=== PATIENT | male | born 1990 | race American Indian/Alaskan Native ===

== ENCOUNTER 2021-10-07 12:34 | Outpatient (REF) | payer OTHER, SELFPAY ==
[2021-10-07 13:12] LABS: COVID-19 Test Negative (Negative); IDNOW Serial# 55D5AD1C
== END 2021-10-07 12:35 | disposition home or self-care (01) ==
LOC: HO.LAB 12:34
PROVIDERS: Visit Provider Internal Medicine
DX: Z20.822 Contact with and (suspected) exposure to COVID-19 (principal)
CPT/HCPCS: 87635

== ENCOUNTER 2023-11-28 09:10 | Outpatient (AMB) | payer OTHER, SELFPAY ==
--- NOTE | 2023-11-28 10:18 | AM.OFFWIN_ITS ---
Intake Vital Signs 11/28/23 10:19 Height 5 ft 5 in Weight 166 lb BMI 27.6 BP 126/90 H Blood Pressure Location Lt brachial Position Sitting Pulse 73 Pulse Source Pulse Oximeter Temp 97.6 F Temp Source Temporal Artery Scan Pulse Oximetry (%) 97 Oxygen Delivery Method Room Air Intake Visit Reasons: EST/groin area redness ([phone]) Intake Note: pt is here today for groin area redness started 1 week ago Patient Tobacco Use Status: Never used Tobacco Allergies No Known Allergies Allergy (Verified 11/28/23 10:19) Do you need a note to return to daycare/school/sports/work: No HPI EST/groin area redness ([phone]) HPI Details 33 year old male presents to the office for a sick visit. He has a rash on the front of the penis. A red spot appeared a few weeks ago and was followed by a few more spots this week. He is heterosexual, single partner, does not use protection (Condoms). Reports no discharge. 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 [facility] Social History Patient Tobacco Use Status: Never used Tobacco Physical Exam Vital Signs: Last Vital Signs Temp 97.6 F 11/28/23 10:19 Pulse 73 11/28/23 10:19 BP 126/90 H 11/28/23 10:19 Pulse Ox 97 11/28/23 10:19 Oxygen Delivery Method Room Air 11/28/23 10:19 BMI result Body Mass Index 27.6 Other: Penis: Glans: erythematous lesions, well circumscribed, no tenderness, minimal whitish exudate on the prepuce. Testicular exam is normal. No inguinal hernia. Assessment & Plan Assessment & Plan (1) Balanitis: Code(s): N48.1 - Balanitis Plan: Most likely candidal in origin. Patient was advised to use lotrimin. If sx not better to follow up here. Medications: New clotrimazole 1% 1 appl topical BID 2 weeks 15 grams 1RF Coding Level of Care Code Est Pt Level 3 (32142) Diagnoses Balanitis N48.1
[2023-11-28 10:19] VITALS: BP 126/90; PULSE 73; TEMP 36.4; O2SAT 97; BMI 27.6
== END 2023-11-28 11:25 | disposition home or self-care (01) ==
PROVIDERS: Visit Provider Internal Medicine
DX: N48.1 Balanitis (principal)
CPT/HCPCS: 99213

== ENCOUNTER 2024-03-02 19:56 | Emergency (ER) | payer OTHER, SELFPAY ==
[2024-03-02 21:00] VITALS: BP 136/88; PULSE 60; RESP 18; O2SAT 100; BMI 29.0
--- NOTE | 2024-03-02 21:17 | ED_ITS ---
HPI - General Adult General Chief complaint: Dental/Oral Stated complaint: tooth pain Time Seen by Provider: 03/02/24 21:14 Source: patient Limitations: no limitations History of Present Illness HPI narrative: 34-year-old male presents for evaluation of right-sided facial pain. Patient states he has a known issue with 1 of his right upper teeth. He had some dental work performed last month and had a follow up appointment because he began to have. Patient was placed on clindamycin for which he completed a course several days ago. Patient states over the past 2 days he has had worsening pain, sharp, shooting and throbbing pain to the right side of his face. It is worse with chewing. He has been taking ibuprofen with minimal relief. He denies any fevers chills nausea or vomiting. 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 Related Data Previous Rx's ?Medication ?Instructions ?Recorded clotrimazole 1 % topical cream 1 appl topical BID 2 weeks #15 11/28/23 grams clindamycin HCl 300 mg capsule 300 mg PO Q6H 7 days #28 caps 03/02/24 ibuprofen 600 mg tablet 600 mg PO Q6H PRN pain #20 tabs 03/02/24 oxycodone 5 mg tablet 5 mg PO Q6H PRN pain #8 tabs 03/02/24 Allergies Allergy/AdvReac Type Severity Reaction Status Date / Time Penicillins Allergy Anaphylaxis Verified 03/02/24 22:05 Review of Systems ENT: Reports dental pain, Reports facial pain, Denies hoarseness, Denies sinus pain, Denies sinus pressure, Denies sore throat and Denies throat swelling Respiratory: Respiratory: Reports no additional respiratory complaints Allergic/Immunologic: Allergic/Immunologic: Denies throat swelling [facility] Social History Social History Patient Tobacco Use Status: Never used Tobacco Advance Directives: No Advance Directives Information Provided: No Do you have a plan to hurt others: No Plan Physical Exam ED Vital Signs: Vital Signs - 24 hr 03/02/24 21:00 03/02/24 21:19 03/02/24 22:18 Temperature 97.9 F 97.9 F Pulse Rate 60 98 98 Respiratory Rate 18 18 Blood Pressure 136/88 126/73 126/73 Pulse Oximetry 100 98 98 Oxygen Delivery Method Room Air Room Air Room Air BMI result Body Mass Index 29.0 Const General: cooperative HENMT Other: Oropharynx is moist. There is no tongue elevation or edema. Teeth are in fairly good repair. Tooth 3 Has mild tenderness to tapping. There is no periapical erythema or edema. No evidence for drainable abscess. No trismus. No lymphadenopathy Psych Appearance: grossly normal Course Course Course Narrative: At time of discharge, patient was to receive a dose of Augmentin. Despite discussing this medication with the patient, he later realized that he has anaphylactic allergy to penicillins. This medication was not administered to the patient. Augmentin was discontinued and clindamycin ordered. Medications Administered Discontinued Medications Generic Name Dose Route Start Last Admin Trade Name Freq PRN Reason Stop Dose Admin Clindamycin HCl 300 mg 03/02/24 22:08 03/02/24 22:12 Clindamycin Hcl 300 Mg Capsule PO 03/02/24 22:09 300 mg ONCE ONE Administration Oxycodone HCl 5 mg 03/02/24 21:33 03/02/24 22:05 Oxycodone Hcl Immed Release 5 Mg Tablet PO 03/02/24 21:34 5 mg ONCE ONE Administration Medical Decision Making Medical Decision Making MDM Narrative: 34-year-old male presenting for right-sided facial pain and dental pain. No evidence of drainable abscess on exam. Will repeat course of antibiotics as well as additional pain medication. Prescription monitoring program is not reveal any controlled substances. Patient is not driving this evening and he has a ride by his girlfriend has with him. First dose of clindamycin now. Instructions, including the use of oxycodone being a potential for addictive medication, could cause drowsiness and fatigue. Patient expresses understanding of all discharge instructions and has no further questions at this time. He was also provided a note for light duty that included no driving, no operating of heavy machinery, and no use of firearms while on [employer] training. Differential Diagnosis Differential Diagnoses: The differential diagnosis associated with the presentation includes Dental abscess Dental caries Facial pain Broken dentition Independent Historian Clinical information obtained from an independent historian. History obtained from or confirmed by: Friend Prescription Management I considered prescription management with: Pain Medication and Antibiotic Discharge Plan Discharge Clinical Impression: Dental caries, Acute facial pain Patient Disposition: Home, Self-Care Instructions: Toothache (ED) Additional Instructions: Clindamycin as directed. Finish all antibiotics. Ibuprofen as directed. Take with food. This will help with pain and inflammation. Oxycodone as directed. Do not drive, operate heavy machinery or drink alcohol while taking this medication as it may make you drowsy. Follow-up with your primary care provider. Call this week to schedule a follow- up appointment. Return to the emergency department if you have any worsening of symptoms, or any concerns. Get well soon! Prescriptions: New oxycodone 5 mg tablet 5 mg PO Q6H PRN (Reason: pain) Qty: 8 0RF Rx Instructions: Partial Fill upon patient request. ibuprofen 600 mg tablet 600 mg PO Q6H PRN (Reason: pain) Qty: 20 0RF Rx Instructions: Take with food. clindamycin HCl 300 mg capsule 300 mg PO Q6H 7 Days Qty: 28 0RF No Action clotrimazole 1 % cream 1 appl topical BID 14 Days Qty: 15 1RF Stand Alone Forms: Dental Emergency Numbers, Work/School Release Interventions: ED Discharge Assessment Last Done: 03/02/24 22:18 Discharge Date/Time: 03/02/24 22:18 Print Language: Hong Konger
[2024-03-02 21:19] VITALS: BP 126/73; PULSE 98; TEMP 36.6; O2SAT 98
[2024-03-02] MEDS: oxyCODONE HCl Immed Release 5 MG TABLET PO (22:05)
[2024-03-02] MEDS: Clindamycin HCL 300 MG CAPSULE PO (22:12)
[2024-03-02 22:18] VITALS: BP 126/73; PULSE 98; RESP 18; TEMP 36.6; O2SAT 98
== END 2024-03-02 22:18 | disposition home or self-care (01) ==
PROVIDERS: Emergency Provider Emergency Medicine
DX: K02.9 Dental caries, unspecified (principal); R51.9 Headache, unspecified
CPT/HCPCS: 99283

== ENCOUNTER 2024-06-16 09:49 | Outpatient (AMB) | payer OTHER, SELFPAY ==
[2024-06-16 10:01] VITALS: BP 142/80; PULSE 67; TEMP 36.7; O2SAT 97; BMI 29.0
--- NOTE | 2024-06-16 10:01 | MHC.OFFWIV ---
Intake Vital Signs 06/16/24 10:01 Height 5 ft 7 in Weight 185 lb BMI 29.0 BP 142/80 H Blood Pressure Location Rt brachial Position Sitting Pulse 67 Pulse Source Pulse Oximeter Temp 98.1 F Temp Source Oral Pulse Oximetry (%) 97 Oxygen Delivery Method Room Air Intake Visit Reasons: EP Cough, congestion, sinus pressure Intake Note: pt is here for cough, congestion and sinus pressure, ongoing for 2 weeks Patient Tobacco Use Status: Never used Tobacco Allergies Penicillins Allergy (Verified 06/16/24 10:01) Anaphylaxis Do you need a note to return to daycare/school/sports/work: No HPI HPI Comments History of Present Illness Details He presents to office with cold symptoms 2 wees ago dry throat. progressed into dry cough Worsening sinus congestion and pressure Truing DayWuil/NyQuil without relief Presents for worsening chest congestion + tight chest Cough with production of phlegm No fever or chills + sick contacts States sinus has cleared PFSH Social History Patient Tobacco Use Status: Never used Tobacco Review of Systems Const Denies chills, Reports fatigue and Denies fever(s) Eyes Denies change in vision ENT Denies otalgia, Reports nasal discharge, Denies sinus pressure and Denies sore throat Card Denies chest pain, Denies rapid heart rate and Denies dyspnea Resp Reports chest congestion, Reports cough, Denies dyspnea and Denies wheezing Musc Denies myalgias Endo Reports fatigue Aller/Immun Denies wheezing Physical Exam Vital Signs: Last Vital Signs Temp 98.1 F 06/16/24 10:01 Pulse 67 06/16/24 10:01 BP 142/80 H 06/16/24 10:01 Pulse Ox 97 06/16/24 10:01 Oxygen Delivery Method Room Air 06/16/24 10:01 BMI result Body Mass Index 29.0 General: Non-toxic, NAD. Speaking full sentences. Skin: Warm dry throughout Eye: EOMI HENT: Airway patent. Uvula midline. No pharyngeal erythema or edema. 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 Bilateral canals clear. TM non-erythematous, non-bulging. No TM perforation or hemotympanum noted. Respiratory: CTA bilaterally. No wheezes or rhonchi. Minimal decrease at base without crackles appreciated. No respiratory distress or stridor Cardiac: RRR. No murmur MSK: Full ROM extremities. Neurology: A/O. No aphasia or facial droop. Gait without abnormality Psych: Good mood and affect Assessment & Plan Assessment & Plan (1) Acute bacterial bronchitis: Code(s): J20.8 - Acute bronchitis due to other specified organisms; B96.89 - Other specified bacterial agents as the cause of diseases classified elsewhere Plan: Pt seen and evaluated URI symptoms resolved but cough worsening Lungs without rales or significant rhonchi however due to symptom history, will cover with azithromycin Chest xray not warranted at this time F/U with PCP Call with concerns SOB or CP go to ED Pt gave verbal consent upon discharge Insurance does not cover benzonate tablets so they were not called in Medications: New azithromycin start on day 2 of therapy 250 mg PO DAILY 6 tabs 0RF 6 days Coding Level of Care Code Est Pt Level 3 (75338) Diagnoses Acute bacterial bronchitis J20.8; B96.89
== END 2024-06-16 11:16 | disposition home or self-care (01) ==
PROVIDERS: Visit Provider Physician Assistant
DX: J20.8 Acute bronchitis due to other specified organisms (principal); B96.89 Other specified bacterial agents as the cause of diseases classified elsewhere

== ENCOUNTER → 2024-06-16 09:49 | Outpatient (BNVA) | payer OTHER, SELFPAY | DX: J20.8 Acute bronchitis due to other specified organisms (principal); B96.89 Other specified bacterial agents as the cause of diseases classified elsewhere | CPT/HCPCS: 99212 ==

== ENCOUNTER 2025-01-15 08:17 | Day surgery (SDC) | payer OTHER, SELFPAY ==
[2025-01-09 15:18] VITALS: BMI 28.5
[2025-01-15 08:29] VITALS: BP 120/74; PULSE 62; RESP 18; TEMP 36.6; O2SAT 97; BMI 28.6
--- NOTE | 2025-01-15 08:31 | HO.ANESPROP2 ---
PMF Active Problems Active Problems: All Active Problems Acute bacterial bronchitis (Acute) Past Medical History Medical History (Updated 01/09/25 @ 15:18 by Yin Christianson RN) Sickle cell trait Anxiety GERD (gastroesophageal reflux disease) Family History Family history of problems with anesthesia: No Surgical History Surgical History (Updated 01/09/25 @ 15:18 by Yin Christianson RN) Hx of wisdom tooth extraction History of Problems with Anesthesia: No Social History Social History (Updated 01/09/25 @ 15:18 by Yin Christianson RN) Patient Tobacco Use Status: Never used Tobacco Advance Directives: No Advance Directives Information Provided: Yes Meds Allergies Allergy/AdvReac Type Severity Reaction Status Date / Time Penicillins Allergy Anaphylaxis Verified 01/15/25 08:23 Home Medications ?Medication ?Instructions ?Recorded ?Confirmed ?Last Taken ?Type psyllium 01/15/25 01/08/25 History Exam Height,Weight and Vital Signs: Height 5 ft 5 in Weight 77.655 kg Airway Mallampati Class: II TM Dist: >3cm Neck ROM: Full Assessment and Plan Assessment Anesthesia Assessment: Anesthesia Plan Discussed and Chart Reviewed Final Anesthetic Review Family History of Problems with Anesthesia: No History of Problems with Anesthesia: No NPO: Yes ASA Class: I Final Preanesthetic Review: No Changes in Pt Med Stat, Meds/Allgs Chart Reviewed, Consent Obtained/Reviewed and Anes Risks/Benef Reviewed Patient Risk: Low Procedure Risk: Low Anesthetic Plan Anesthetic Plan: TIVA Disposition: Standard PACU
--- OUTSIDE RECORDS SUMMARY | 2025-01-15 08:32 | XMS_ITS ---
Author Organization [facility] Address [address] [place] [address] Care Team Providers Care Retoucher Photoengraving Name Role Phone Everton RICHMOND, Lucas Primary Care Provider Rohit Muñoz Jr Unavailable Allergies Allergen (clinical drug ingredient) Drug/Non Drug Allergy documented on EMR Reaction Allergy Type Onset Date Status Penicillin Unknown Drug Allergy Active REASON FOR VISIT Patient presents today for ACID RELUX Social History Tobacco Use: Social History Observation Description Date Details (start date - stop date) Never Smoker NA - NA Tobacco Control (Standard) Question Answer Notes Tobacco use: Nonsmoker AUDIT-C (Standard) Question Answer Notes Did you have a drink contain ing alcohol in the past year? Yes How often did you have a dri nk containing alcohol in the past year? Monthly or less (1 point) How many drinks did you have on a typical day when you were drinking in the past year? 1 or 2 drinks (0 point) How often did you have six o r more drinks on one occasion in the past year? Never (0 point) Points 1 Interpretation Negative Problems Problem Type SNOMED Code ICD Code Onset Dates Problem Status W/U Status Risk Notes Problem [id number] Gastroesophageal reflux disease, unspecified whether esophagitis present (K21.9) Active confirmed Vital Signs Temperature 97.9 degrees Fahrenheit 12/18/19 25 Blood pressure systolic 001 mm Hg 12/18/19 25 Blood pressure diastolic 01 mm Hg 025 Height 65 in 12/17/2024 Weight 171.2 lbs 12/17/2024 BMI 28.49 kg/m2 12/17/2024 Encounters Encounter Location Date Provider Diagnosis [facility] [address] [place] [address] 12/17/2024 Rohit Maya Jr Gastroesophageal reflux disease, unspecified whether esophagitis present K21.9 Assessments Encounter Date Diagnosis (ICD Code) Assessment Notes Treatment Notes Treatment Clinical Notes Section Notes 12/17/2024 Gastroesophageal reflux disease, unspecified whether esophagitis present (ICD-10 - K21.9) We discussed gastroesophageal reflux disease today. We discussed diet, lifestyle modifications, and weight management regarding the treatment of reflux. I have recommended a longer trial of a higher dose PPI and prescription for omeprazole 40 mg daily is sent to the pharmacy. He will undergo further evaluation with upper endoscopy because of the longstanding nature of his symptoms and to rule out Palomino's esophagus. He is aware of risks and benefits of the procedure and agrees to proceed. 12/17/2024 Other H2 blockers material was printed We discussed gastroesophageal reflux disease today. We discussed diet, lifestyle modifications, and weight management regarding the treatment of reflux. I have recommended a longer trial of a higher dose PPI and prescription for omeprazole 40 mg daily is sent to the pharmacy. He will undergo further evaluation with upper endoscopy because of the longstanding nature of his symptoms and to rule out Palomino's esophagus. He is aware of risks and benefits of the procedure and agrees to proceed. Plan Of Treatment Treatment Notes Assessment Notes Other H2 blockers material was printed Future Test Test Name Order Date UPPER GI ENDOSCOPY 12/17/2024 Next Appt Details Follow Up: 1 Year, Reason: Provider Name:Rohit brooks Jr, 01/15/2025 09:30:00 AM, [address] [place] [address] , [place], [place], [phone], Progress Notes * RAH DELAROSAOB:[birth year] (34 yo M)Acc No.[id number]:12/17/2024 Progress Notes Patient:?WASHINGTONEVELIOO Provider:?Rohit Maya MD :1990???Age:34 Y???Sex:Male Michael e:12/17/2024 Address:[address] [place] [address] [place] [address] Pcp:Lucas Toscano NP Subjective: * Chief Complaints: * ???1. Patient presents today for ACID RELUX. * HPI: ???New symptom(s):? The patient is a pleasant 34-year-old man seen today because of gastroesophageal reflux disease. He has had symptoms for years, more than 10. These include substernal burning precipitated by typical foods including spicy foods and fatty foods. He has been on low-dose PPIs for cycles of 2 weeks without relief of symptoms or minimal relief. He has never undergone endoscopy. He is taking psyllium to help with bowel movements. He has abdominal bloating but no rectal bleeding. He does complain of belching. He finds that coffee can make his symptoms worse and he has cut back with improvement. There has been no dysphagia, hematemesis, or melena. * ROS:?General/Constitutional:?Change in appetite?denies.?Fatigue?denies.?ENT:?Patient denies?difficulty swallowing.?Respiratory:?Patient denies?shortness of breath.?Cardiovascular:?Patient denies?chest pain.?Gastrointestinal:?Comments?See HPI for details.?Genitourinary:?Difficulty urinating?denies.?Incontinence?denies.?Musculoskeletal:?Patient denies?muscle aches.?Skin:?Patient denies?pruritis.?Neurologic:?Patient denies?low back pain.?Psychiatric:?Patient denies?mental or physical abuse.? * Medical History:?Anxiety, GE RD, Sickle cell trait. * Surgical History:?wisdom gustavo th extraction . * Family History:?Mother: diag nosed with Diabetes.? No family history of liver cancer or colon cancer. * Social History:?Tobacco Use:?Tobacco Control (Standard)?Tobacco use:?Nonsmoker.?Miscellaneous:?Marital status: . 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 ???Drug/Alcohol:?AUDIT-C (Standard)?Did you have a drink containing alcohol in the past year??Yes,?How often did you have a drink containing alcohol in the past year??Monthly or less (1 point),?How many drinks did you have on a typical day when you were drinking in the past year??1 or 2 drinks (0 point),?How often did you have six or more drinks on one occasion in the past year??Never (0 point),?Points?1,?Interpretation?Negative.? * Medications:?None * Allergies:?Penicillin. Objective: * Vitals:?Wt:171.2lbs, Ht: 65 in, BMI:28.49Index, BP:001/01mm Hg, Temp:97.9, Ht- cm: 165.1, Wt-k.66. * Examination: ???General Examination: ?GENERAL APPEARANCE:?in no acute distress.?HEAD:?normocephalic.?EYES:?sclera non-icteric.?ORAL CAVITY:?mucosa moist.?NECK/THYROID:?no lymphadenopathy.?SKIN:?anicteric.?HEART:?S1, S2 normal, no murmurs.?LUNGS:?clear to auscultation bilaterally.?CHEST:?normal shape and expansion.?ABDOMEN:?soft, nontender, nondistended, bowel sounds present, no organomegaly .?EXTREMITIES:?no clubbing, cyanosis, or edema.?PSYCH:?cognitive function intact.? Assessment: * Assessment: 1.?Gastroesophageal reflux d isease, unspecified whether esophagitis present - K21.9 (Primary)??? We discussed gastroesophagea l reflux disease today. We discussed diet, lifestyle modifications, and weight management regarding the treatment of reflux. I have recommended a longer trial of a higher dose PPI and prescription for omeprazole 40 mg daily is sent to the pharmacy. He will undergo further evaluation with upper endoscopy because of the longstanding nature of his symptoms and to rule out Palomino's esophagus. He is aware of risks and benefits of the procedure and agrees to proceed. Plan: * Treatment: 2.?Others? Notes: H2 blockers material was printed?? * Procedure Codes:?G9903 Pt sc rn tbco id as non user * Preventive Medicine:? ??Counseling:?Care goal follow-up plan:?Above Normal BMI Follow-up?Dietary management education, guidance, and counseling,?BMI management provided?Yes.? * Follow Up:?1 Year * * Sign off status: Completed true * Provider:?Rohit Maya MD Date:?0 12/17/2024 Generated for Benjamín harding/Delroy/eTransmitting on:?01/15/2025 08:32 AM EDT History and Physical Notes * HPI (History of Present Illness) Category Sub-Category Detail Notes Category Not es New symptom(s) The patient i s a pleasant 34-year-old man seen today because of gastroesophageal reflux disease. He has had symptoms for years, more than 10. These include substernal burning precipitated by typical foods including spicy foods and fatty foods. He has been on low-dose PPIs for cycles of 2 weeks without relief of symptoms or minimal relief. He has never undergone endoscopy. He is taking psyllium to help with bowel movements. He has abdominal bloating but no rectal bleeding. He does complain of belching. He finds that coffee can make his symptoms worse and he has cut back with improvement. There has been no dysphagia, hematemesis, or melena. Examination Category Sub-Category Detail Notes Category Not es General Examination GENERAL APPEARANCE: in no acute di stress HEAD: normocephalic EYES: sclera non-icteric NECK/THYROID: no lymphadenopathy HEART: S1, S2 normal, no mu rmurs CHEST: normal shape and exp ansion LUNGS: clear to auscultatio n bilaterally ABDOMEN: soft, nontender, non distended, bowel sounds present, no organomegaly SKIN: anicteric EXTREMITIES: no clubbing, cyanosi s, or edema PSYCH: cognitive function i ntact ORAL CAVITY: mucosa moist
--- OUTSIDE RECORDS SUMMARY | 2025-01-15 08:33 | XMS_ITS | Patient Health Record ---
Author Organization [facility] Address [address] [place] [address] Care Team Providers Care Glass Sander Belt Name Role Phone Everton RICHMOND, Lucas Primary Care Provider Rohit Muñoz Jr Unavailable [phone] Allergies Allergen (clinical drug ingredient) Drug/Non Drug Allergy documented on EMR Reaction Allergy Type Onset Date Status Penicillin Unknown Drug Allergy Active Reason For Referral Referring Provider First Name Lucsa Referring Provider Last Name Everton Referred Organization [facility] Referred Provider Rohit Maya Jr Referred Address [address],[place], [place],[address], Referred Provider Specialty Gastroentero logy Referral Priority Routine Immunizations Vaccine Route Administration Date Status Comme nts Influenza Unknown 11/06/2024 Administered Social History Tobacco Use: Social History Observation [...] Problem Status W/U Status Risk Notes Problem [id number] Gastroesophageal reflux disease, unspecified whether esophagitis present (K21.9) Active confirmed Vital Signs Temperature 97.9 degrees Fahrenheit 12/17/2024 Blood pressure diastolic 01 mm Hg 12/17/2024 Height 65 in 12/17/2024 Blood pressure systolic 001 mm Hg 12/17/2024 Weight 171.2 lbs 12/17/2024 BMI 28.49 kg/m2 12/17/2024 Encounters Encounter Location Date Provider Diagnosis [facility] [address] [place] [address] 12/17/2024 Rohit Maya Jr Gastroesophageal reflux disease, [...] and agrees to proceed. Plan Of Treatment Future Test Test Name Order Date UPPER GI ENDOSCOPY 12/17/2024 Next Appt Details Provider Name:Rohit brooks Jr, 01/15/2025 09:30:00 AM, [address] , [place], [place], [phone], Insurance Providers Payer Name Payer Address Payer Phone Subscriber Number Group Number Insured Name Patient Relationship to Insured Coverage Start Date Coverage End Date [facility] [employer] [address] [place] [id number] [phone] [id number] JG DELAROSA Self - patient is the insured Medical (General) History Medical History History ICD Code Anxiety GERD Sickle cell trait Surgical History Surgery Date(Month/Year) wisdom teeth extraction
--- OUTSIDE RECORDS SUMMARY | 2025-01-15 08:33 | XMS_ITS | Continuity of Care Document ---
Author Name [facility]MI Organization [facility] Care Team Providers Care Cellar Pumper Name Role Phone [facility] Unavailable Unavailable Problems Combined list of problems from Department of Defense and Veterans Affairs facilities. It does not include entries that were removed or entered in error. Problem Status Onset Date Problem Type Date of Resolution Comments Source Other chest pain Inactive 06/16/20 19 Condition DoD Low back pain Inactive 02/10/20 17 Condition DoD Pain in right knee Active 03/22/20 16 Condition Unknown Organization Pain in right knee Active 03/22/20 16 Condition DoD Allergic rhinitis Active Condition Unkn own Organization Cervical somatic dysfunction Active Condition Unknown Organization Dizziness Active Condition Unknown Organization Low back pain Active Condition Unknown Organization Neck pain Active Condition Unknown Organization Pain in testicle Active Condition Unkno wn Organization Regular astigmatism Active Condition Unknown Organization Segmental and somatic dysfunction Active Condition Unknown Organization Sickle cell trait Active Condition Unkn own Organization Somatic dysfunction of lumbar region Active Condition Unknown Organization Somatic dysfunction of thoracic region Active Condition Unknown Organization Talipes planus Active Condition Unknown Organization Ankle pain Active Condition Aug 15 Entered By: BALDEMAR LONDON Comment: bilateral [facility] Anxiety (SCT [id number]) Active Condition Aug 15, 2024 Entered By: BALDEMAR LONDON Comment: follows [facility] the [facility] Chronic sinusitis Active Condition [facility] Constipation Active Condition [facility] Elbow pain Active Condition Aug 15 Entered By: BALDEMAR LONDON Comment: right [facility] Exposure to potentially hazardous substance Active Condition [facility] Foot pain Active Condition [facility] GERD - Gastro-Esophageal Reflux Disease (SCT [id number]) Active Condition [facility] Pain of bilateral knee joints Active Condition [facility] Right hip pain Active Condition [facility] Trigger finger of right hand Active Condition Aug 15, 2024 Entered By: BALDEMAR LONDON Comment: fifth digit [facility] Segmental and somatic dysfunction of lumbar region Active Condition DoD Cervicalgia Active Condition DoD Segmental and somatic dysfunction of cervical region Active Condition DoD Segmental and somatic dysfunction of thoracic region Active Condition DoD Flat foot [pes planus] (acquired), unspecified foot Active Condition DoD Allergic rhinitis, unspecified Active Condition DoD SOMATIC DYSFUNCTION OF CERVICAL REGION Active Condition DoD SOMATIC DYSFUNCTION OF THORACIC REGION Active Condition DoD SOMATIC DYSFUNCTION OF LUMBAR REGION Active Condition DoD lower back pain Active Condition DoD neck pain Active Condition DoD dizziness Active Condition DoD ASTIGMATISM - REGULAR Active Condition DoD testicular pain right Active Condition DoD visit for: occupational health / fitness exam Active Condition DoD visit for: screening exam cardiovascular disorders Inactive Condition [facility] Patient Counseling: Inactive Condition DoD SUBUNGUAL HEMATOMA RIGHT HAND MIDDLE FINGER Inactive Condition DoD visit for: screening exam neurological disorders traumatic brain injury Inactive Condition DoD PHARYNGITIS Inactive Condition DoD Fever Active Condition DoD SICKLE CELL TRAIT Active Condition DoD Need For Prophylactic Antibiotics Inactive Condition DoD visit for: ears / hearing exam Active Condition [facility] visit for: services physical Active Condition [facility] Diagnosis: ICD-10-CM 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 Medication Details Route Status Patient Instructions Prescription Expires Prescription Number Last Dispense Date Ordering Provider Order Date Order Qty Source CLINDAMYCIN HCL (clindamyci n HCl), 300 MG, CAPSULE, ORAL, [facility],, 100 ea. BOTTLE Active [id number] 2023 28 Pharmac y Data Transac tion Service Facilit y IBUPROFEN (ibuprofen) , 600 MG, TABLET, ORAL, TIME-[facility], 500 ea. BOTTLE Active [id number] 2023 20 Pharmac y Data Transac tion Service Facilit y OXYCODONE HCL (OXYCODONE HCL), 5MG, TABLET, ORAL, [employer] 100 ea. BOTTLE Active [id number] 2023 8 Pharmac y Data Transac tion Service Facilit y PreviDent 5000 Plus topical paste See Instruct ions, Apply 1 thin ribbon to toothbru sh. Luebbering thorough ly twice a day. Do not rinse, eat or drink for 30 minutes. , # 51 g, 3 total refill(s ), Maintena nce, Route [facility] Ordered 1 2020 51.0 0457C-1 [facility] PSYLLIUM PWDR,ORAL TAKE 2 TEASPOON FULS BY MOUTH ONCE DAILY FOR CONSTIPA TION (MIX WITH AT LEAST 8OZ. OF WATER OR OTHER FLUID) ORAL ACTIVE 08/16/2025 [id number] KRISTY LONDON 2023 [facility] Allergies, Adverse Reactions, Alerts Combined list of allergies from Department of Defense and Veterans Affairs facilities. It does not include entries that were removed or entered in error. Substance Category Reaction Severity Reaction type Status Date Reported Comments Source PENICILLIN Propensity to adverse reactions to drug (finding) Anxiety, Anaphylaxis active 4 [facility] Drug allergy (disorder) Unknown active 7 [facility] on penicillins Propensity to adverse reactions to substance Unknown Active Unknown Organiza tion Immunizations Combined list of available immunizations from the Department of Defense and Veterans Affairs facilities. Immunization Series Date Given Administered By Site Reaction Lot Number CVX Code Drug Tube And Rod Straightener Status Comments Source COVID-19, mRNA, LNP-S, PF, 100 mcg or 50 mcg dose 2021 GABRIELChampion [employer] (MOD) Not Given COVID-19, mRNA, LNP-S, PF, 100 mcg or 50 mcg dose [facility] influenza, injectable, quadrivalent, preservative free 2020 SCOT, () Not Given influenza , injectabl e, quadrival ent, preservat curly free DoD COVID-19, mRNA, LNP-S, PF, 100 mcg or 50 mcg dose 2020 GABRIEL, Moderna [employer] (MOD) Not Given COVID-19, mRNA, LNP-S, PF, 100 mcg or 50 mcg dose DoD tetanus, diphtheria, acellular pertu is 2020 SANYA ARRA [id number] complet ed Result Comment: Route: Unknown Manufactu rer: OTH (SKB) 0208C-N [facility] 13 [facility] influenza, injectable, quadrivalent 2019 SANYA ARRA [id number] complet ed Result Comment: Unit: Unknown Route: Intramusc ular(IM) Manufactu rer: Seqirus (SEQ) 0208C-N [facility] 13 [facility] influenza, injectable, quadrivalent, contains preservative 1 2019 SHASHANK BECERRIL [id number] 158 [employer] (SEQ) complet ed influenza , injectabl e, quadrival ent, contains preservat curly DoD influenza, injectable, quadrivalent- pf 2018 [id number] 150 [employer] complet ed influenza , injectabl e, quadrival ent-pf 07/31/19 Given Ambulat ory Pharmac y Influenza, injectable, quadrivalent, preservative free 0 2018 [id number] 150 Se[employer]irus (SEQ) complet ed Influenza , injectabl e, quadrival ent, preservat curly free DoD varicella virus vaccine 0 2018 21 () Not Given varicella virus vaccine DoD influenza, injectable, quadrivalent- pf 2017 zzLef t Arm [id number] 150 GlaxoSmithKli ne complet ed influenza , injectabl e, quadrival ent-pf 07/10/18 Given Ambulat ory Pharmac y Influenza, injectable, quadrivalent, preservative free 1 2017 JERARDO LINDER [id number] 150 [facility] complet ed Influenza , injectabl e, quadrival ent, preservat curly free DoD influenza, injectable, quadrivalent- pf 2016 zzLef t Arm [id number] 150 GlaxoSmithKli ne complet ed influenza , injectabl e, quadrival ent-pf 06/27/17 Given Ambulat ory Pharmac y Influenza, injectable, quadrivalent, preservative free 1 2016 JAZMIN HANSON [id number] 150 SmithKline (SKB) complet ed Influenza , injectabl e, quadrival ent, preservat curly free DoD influenza, injectable, quadrivalent- pf 2015 zKaren amos Arm [id number] 150 Seqirus complet ed influenza , injectabl e, quadrival ent-pf 07/20/16 Given Ambulat ory Pharmac y Influenza, injectable, quadrivalent, preservative free 1 2015 NATASHA IBARRA R [id number] 150 Seqirus (SEQ) complet ed Influenza , injectabl e, quadrival ent, preservat curly free DoD influenza, seasonal, intradermal-p f 2014 [id number] 1 144 CSL Behring complet ed influenza , seasonal, intraderm al-pf 07/31/15 Given Ambulat ory Pharmac y seasonal influenza, intradermal, preservative free 0 2014 [id number] 1 144 CSL [employer] (CSL) complet ed seasonal influenza , intraderm al, preservat curly free DoD influenza, seasonal, injectable-pf 2013 [id number] 140 Novartis Pharmaceutica ls complet ed influenza , seasonal, injectabl e-pf 07/02/14 Given Ambulat ory Pharmac y Influenza, seasonal, injectable, preservative free 0 2013 [id number] 140 Novartis Pharmaceutica l Ki. (NOV) complet ed Influenza , seasonal, injectabl e, preservat curly free DoD influenza, seasonal, injectable-pf 2012 [id number] 1A 140 CSL Behring complet ed influenza , seasonal, injectabl e-pf 07/06/13 Given Ambulat ory Pharmac y Influenza, seasonal, injectable, preservative free 0 2012 [id number] 1A 140 [employer] (CSL) complet ed Influenza , seasonal, injectabl e, preservat curly free DoD typhoid vaccine, live, oral 2012 [id number] 25 Unknown complet ed typhoid vaccine, live, oral 12/18/12 Given Ambulat ory Pharmac y typhoid vaccine, live, oral 4 2012 [id number] 25 Unknown (UNK) comple t ed typhoid vaccine, live, oral DoD typhoid vaccine, live, oral 2012 [id number] 25 Unknown complet ed typhoid vaccine, live, oral 12/06/12 Given Ambulat ory Pharmac y typhoid vaccine, live, oral 1 2012 [id number] 25 Unknown (UNK) comple t ed typhoid vaccine, live, oral DoD typhoid vaccine, live, oral 2012 [id number] 25 Unknown complet ed typhoid vaccine, live, oral 11/22/12 Given Ambulat ory Pharmac y typhoid vaccine, live, oral 1 2012 [id number] 25 Unknown (UNK) comple t ed typhoid vaccine, live, oral DoD influenza, seasonal, injectable-pf 2011 UNK 140 CSL Behring complet ed influenza , seasonal, injectabl e-pf 07/20/12 Given Ambulat ory Pharmac y Influenza, seasonal, injectable, preservative free 0 2011 UNK 140 CSL Scootershe[employer] (CSL) complet ed Influenza , seasonal, injectabl e, preservat curly free DoD hepatitis A-hepatitis B vaccine 2010 [id number] 7AA 104 GlaxoSmithKli ne complet ed hepatitis A-hepatit is B vaccine 08/10/11 Given Ambulat ory Pharmac y hepatitis A and hepatitis B vaccine 3 2010 AHABB22 7AA 104 SmithKline (SKB) complet ed hepatitis A and hepatitis B vaccine DoD influenza, seasonal, injectable 2010 [id number] 141 sanofi pasteur complet ed influenza , seasonal, injectabl e 07/05/11 Given Ambulat ory Pharmac y Influenza, seasonal, injectable 0 2010 [id number] 141 Sanofi Pasteur (PMC) complet ed Influenza , seasonal, injectabl e DoD hepatitis A-hepatitis B vaccine 2010 UNK 104 GlaxoSmithKli ne complet ed hepatitis A-hepatit is B vaccine 01/06/11 Given Ambulat ory Pharmac y hepatitis A and hepatitis B vaccine 2 2010 UNK 104 SmithKline (SKB) complet ed hepatitis A and hepatitis B vaccine DoD anthrax vaccine 2010 UNK 24 complet ed anthrax vaccine 12/19/10 Given Ambulat ory Pharmac y anthrax vaccine 2 2010 UNK 24 (EBS) complet ed anthrax vaccine DoD hepatitis A-hepatitis B vaccine 2010 [id number] 4BA 104 [facility] ed hepatitis A-hepatit is B vaccine 11/19/10 Given Ambulat ory Pharmac y anthrax vaccine 2010 [id number] complet ed anthrax vaccine 11/19/10 Given Ambulat ory Pharmac y typhoid Vi capsular polysaccharid e vac 2010 [id number] 101 Venuetastic [facility] complet ed typhoid Vi capsular polysacch aride vac 11/19/10 Given Ambulat ory Pharmac y vaccinia (smallpox) vaccine 2010 DZ04-00 3-A 75 Sanofi Pasteur Incorporated complet ed vaccinia (smallpox ) vaccine 11/19/10 Given Ambulat ory Pharmac y anthrax vaccine 1 2010 [id number] 24 (EBS) complet ed anthrax vaccine DoD vaccinia (smallpox) vaccine 0 2010 DZ04-00 3-A 75 (TORRES) complet ed vaccinia (smallpox ) vaccine DoD typhoid Vi capsular polysaccharid e vaccine 1 2010 E0302 101 [facility] (WAL) complet ed typhoid Vi capsular polysacch aride vaccine DoD hepatitis A and hepatitis B vaccine 1 2010 AHABB18 4BA 104 [facility] (SKB) complet ed hepatitis A and hepatitis B vaccine DoD influenza virus vaccine, live 2009 UNK 111 [employer] Inc comple t ed influenza virus vaccine, live 08/13/10 Given Ambulat ory Pharmac y influenza virus vaccine, live, attenuated, for intranasal use 0 2009 UNK 111 [employer] (MED) complet ed influenza virus vaccine, live, attenuate d, for intranasa l use DoD measles and rubella virus vaccine 0 2009 04 () Not Given measles and rubella virus vaccine DoD varicella virus vaccine 0 2009 21 () Not Given varicella virus vaccine DoD yellow fever vaccine 2009 [id number] 37 sanofi pasteur complet ed yellow fever vaccine 03/13/10 Given Ambulat ory Pharmac y poliovirus vaccine, inactivated 2009 F0111-4 10 sanofi pasteur complet ed polioviru s vaccine, inactivat ed 03/13/10 Given Ambulat ory Pharmac y hepatitis A-hepatitis B vaccine 2009 [id number] 4BA 104 GlaxoSmithKli ne complet ed hepatitis A-hepatit is B vaccine 03/13/10 Given Ambulat ory Pharmac y poliovirus vaccine, inactivated 0 2009 X1904-6 10 Sanofi Pasteur ([facility]) complet ed polioviru s vaccine, inactivat ed DoD yellow fever vaccine 0 2009 [id number] 37 Sanofi Pasteur ([facility]) complet ed yellow fever vaccine DoD hepatitis A and hepatitis B vaccine 2 2009 AHABB18 4BA 104 SmithKline (SKB) complet ed hepatitis A and hepatitis B vaccine DoD tetanus, diphtheria, acellular pertu is 2009 [id number] 2AA 115 sanofi pasteur complet ed tetanus, diphtheri a, acellular pertussis 02/03/10 Given Ambulat ory Pharmac y meningococcal A,C,Y,W-135 (MCV4P) 2009 [id number] 114 sanofi pasteur complet ed meningoco ccal A,C,Y,W-1 35 (MCV4P) 02/03/10 Given Ambulat ory Pharmac y influenza virus vaccine,split 2009 [id number] 1A 15 CSL Behring complet ed influenza virus vaccine,s plit 02/03/10 Given Ambulat ory Pharmac y Novel influenza-H1N 1-09, injectable 2009 [id number] 1 127 complet ed Novel influenza -P2P6-80, injectabl e 02/03/10 Given Ambulat ory Pharmac y hepatitis A-hepatitis B vaccine 2009 [id number] 4BA 104 GlaxoSmithKli ne complet ed hepatitis A-hepatit is B vaccine 02/03/10 Given Ambulat ory Pharmac y influenza virus vaccine, split virus (incl. purified surface antigen)-reti red CODE 0 2009 [id number] 1A 15 CSL [employer] (CSL) complet ed influenza virus vaccine, split virus (incl. purified surface antigen)- retired CODE DoD hepatitis A and hepatitis B vaccine 1 2009 [id number] 4BA 104 SmithKline (SKB) complet ed hepatitis A and hepatitis B vaccine DoD meningococcal polysaccharid e (groups A, C, Y and W-135) diphtheria toxoid conjugate vaccine (MCV4P) 0 2009 [id number] 114 Sanofi Pasteur (PMC) complet ed meningoco ccal polysacch aride (groups A, C, Y and W-135) diphtheri a toxoid conjugate vaccine (MCV4P) DoD tetanus toxoid, reduced diphtheria toxoid, and acellular pertu is vaccine, adsorbed 0 2009 [id number] 2AA 115 Sanofi Pasteur (PMC) complet ed tetanus toxoid, reduced diphtheri a toxoid, and acellular pertussis vaccine, adsorbed DoD Novel influenza-H1N 1-09, injectable 0 2009 [id number] 1 127 (AG) complet ed Novel influenza -S2A9-38, injectabl e DoD Results Combined list of recent chemistry, hematology and other laboratory results from Department of Defense and Veterans Affairs, ranging from 15 months to all on record, depending upon the facility. Order Name Results Value Reference Range Date Interpretation Specimen Comments Source LIPID PANEL, NON FASTING CHOLESTERO L [MASS/VOLU ME] IN SERUM OR PLASMA 149 mg/dL 08/15 Specimen Type: SERUM No comment entered. Ordering Provider: MAMIE LONDON Report Released Date/Time: Aug 02, 2024 04:27 PM Reporting Lab: [address] [address] Performing Lab: [address] [address] [facility] LIPID PANEL, NON FASTING TRIGLYCERI DE [MASS/VOLU ME] IN SERUM OR PLASMA 91 mg/dL 0 - 150 08/15 Specimen Type: SERUM No comment entered. Ordering Provider: MAMIE LONDON Report Released Date/Time: Aug 02, 2024 04:27 PM Reporting Lab: [address] [address] Performing Lab: [address] [address] [facility] LIPID PANEL, NON FASTING CHOLESTERO L IN LDL [MASS/VOLU ME] IN SERUM OR PLASMA BY CALCLYNETTE N 100 mg/dL 0 - 129 08/15 Specimen Type: SERUM No comment entered. Ordering Provider: MAMIE LONDON Report Released Date/Time: Aug 02, 2024 04:27 PM Reporting Lab: [facility] [facility] [address] [facility] [address] Performing Lab: [facility] [place] [facility] [address] [facility] [address] [facility] LIPID PANEL, NON FASTING CHOLESTERO L.TOTAL/CH OLESTEROL IN HDL [MASS RATIO] IN SERUM OR PLASMA 4.8 08/15 Specimen Type: SERUM No comment entered. Ordering Provider: MAMIE LONDON Report Released Date/Time: Aug 02, 2024 04:27 PM Reporting Lab: [facility] [place] [facility] [address] [facility] [address] Performing Lab: [facility] [place] [facility] [address] [facility] [address] [facility] LIPID PANEL, NON FASTING CHOLESTERO L IN HDL [MASS/VOLU ME] IN SERUM OR PLASMA 31 mg/dL 40 - 60 08/15 L Specimen Type: SERUM No comment entered. Ordering Provider: MAMIE LONDON Report Released Date/Time: Aug 02, 2024 04:27 PM Reporting Lab: [facility] [place] [facility] [address] [facility] [address] Performing Lab: [facility] [place] [facility] [address] [facility] [address] [facility] LIVER FUNCTION PROTEIN [MASS/VOLU ME] IN SERUM OR PLASMA 7.8 g/dL 6.0 - 8.3 08/15 Specimen Type: SERUM No comment entered. Ordering Provider: MAMIE LONDON Report Released Date/Time: Aug 02, 2024 04:27 PM Reporting Lab: [facility] [place] [facility] [address] [facility] [address] Performing Lab: [facility] [facility] [address] [facility] [address] [facility] LIVER FUNCTION ALBUMIN [MASS/VOLU ME] IN SERUM OR PLASMA 4.0 g/dL 3.5 - 5.0 08/15 Specimen Type: SERUM No comment entered. Ordering Provider: MAMIE LONDON Report Released Date/Time: Aug 02, 2024 04:27 PM Reporting Lab: [facility] [place] [address] [address] Performing Lab: [facility] [place] [facility] [address] [facility] [address] [facility] LIVER FUNCTION ALKALINE PHOSPHATAS E [ENZYMATIC ACTIVITY/V OLUME] IN SERUM OR PLASMA 66 U/L 40 - 150 08/15 Specimen Type: SERUM No comment entered. Ordering Provider: MAMIE LONDON Report Released Date/Time: Aug 02, 2024 04:27 PM Reporting Lab: [facility] [place] [address] [address] Performing Lab: [facility] [place] [address] [address] [facility] LIVER FUNCTION ASPARTATE AMINOTRANS FERASE [ENZYMATIC ACTIVITY/V OLUME] IN SERUM OR PLASMA 36 U/L 5 - 34 08/15 H Specimen Type: SERUM No comment entered. Ordering Provider: MAMIE LONDON Report Released Date/Time: Aug 02, 2024 04:27 PM Reporting Lab: [facility] [place] [address] [address] Performing Lab: [facility] [place] [address] [address] [facility] LIVER FUNCTION ALANINE AMINOTRANS FERASE [ENZYMATIC ACTIVITY/V OLUME] IN SERUM OR PLASMA 66 U/L 08/15 H Specimen Type: SERUM No comment entered. Ordering Provider: MAMIE LONDON Report Released Date/Time: Aug 02, 2024 04:27 PM Reporting Lab: [facility] [place] [address] [address] Performing Lab: [facility] [address] [facility] [address] [facility] LIVER FUNCTION BILIRUBIN. TOTAL [MASS/VOLU ME] IN SERUM OR PLASMA 2.4 mg/dL 0.2 - 1.2 08/15 H Specimen Type: SERUM No comment entered. Ordering Provider: MAMIE LONDON Report Released Date/Time: Aug 02, 2024 04:27 PM Reporting Lab: [address] [address] Performing Lab: [address] [address] [facility] LIVER FUNCTION BILIRUBIN. DIRECT [MASS/VOLU ME] IN SERUM OR PLASMA 0.6 mg/dL 0 - 0.5 08/15 H Specimen Type: SERUM No comment entered. Ordering Provider: MAMIE LONDON Report Released Date/Time: Aug 02, 2024 04:27 PM Reporting Lab: [address] [address] Performing Lab: [address] [address] [facility] HEMOGLOB IN A1C PANEL HEMOGLOBIN A1C/HEMOGL OBIN.TOTAL IN BLOOD BY HPLC 4.7 4.0 - 5.6 08/15 Specimen Type: BLOOD Comment: Values obtained from A1C measurement s can vary. For atypical A1C assays, a reported value of 7.0 could actually be between 6.72 and 7.28 if measured by a reference method. A reported value of 9.0 could actually be between 8.73 and 9.27. Ref: http://www. ngsp.org/[place] Pdata.asp Ordering Provider: MAMIE LONDON Report Released Date/Time: Aug 02, 2024 04:27 PM Reporting Lab: [address] [address] Performing Lab: [address] [address] [facility] CBC LEUKOCYTES [#/VOLUME] IN BLOOD BY AUTOMATED COUNT 4.60 10*3/uL 4.50 - 11.00 08/15 Specimen Type: BLOOD No comment entered. Ordering Provider: MAMIE LONDON Report Released Date/Time: Aug 02, 2024 04:27 PM Reporting Lab: [facility] [address] [facility] [address] Performing Lab: [facility] [address] [facility] [address] [facility] CBC ERYTHROCYT ES [#/VOLUME] IN BLOOD BY AUTOMATED COUNT 4.42 10*6/uL 4.23 - 5.66 08/15 Specimen Type: BLOOD No comment entered. Ordering Provider: MAMIE LONDON Report Released Date/Time: Aug 02, 2024 04:27 PM Reporting Lab: [facility] [place] [address] [address] Performing Lab: [facility] [place] [address] [address] [facility] CBC HEMOGLOBIN [MASS/VOLU ME] IN BLOOD 13.1 g/dL 12.8 - 17 08/15 Specimen Type: BLOOD No comment entered. Ordering Provider: MAMIE LONDON Report Released Date/Time: Aug 02, 2024 04:27 PM Reporting Lab: [facility] [place] [address] [address] Performing Lab: [facility] [address] [place] [address] [facility] CBC HEMATOCRIT [VOLUME FRACTION] OF BLOOD BY AUTOMATED COUNT 37.2 39.2 - 50.4 08/15 L Specimen Type: BLOOD No comment entered. Ordering Provider: MAMIE LONDON Report Released Date/Time: Aug 02, 2024 04:27 PM Reporting Lab: [facility] [place] [address] [address] Performing Lab: [facility] [place] [facility] [address] [facility] [address] [facility] CBC MCV [ENTITIC VOLUME] BY AUTOMATED COUNT 84.2 fL 82 - 99 08/15 Specimen Type: BLOOD No comment entered. Ordering Provider: MAMIE LONDON Report Released Date/Time: Aug 02, 2024 04:27 PM Reporting Lab: [facility] [address] [facility] [address] Performing Lab: [facility] [place] [facility] [address] [facility] [address] [facility] CBC MCHC [MASS/VOLU ME] BY AUTOMATED COUNT 35.2 g/dL 30.8 - 35.1 08/15 H Specimen Type: BLOOD No comment entered. Ordering Provider: MAMIE LONDON Report Released Date/Time: Aug 02, 2024 04:27 PM Reporting Lab: [facility] [facility] [address] [facility] [address] Performing Lab: [facility] [place] [address] [address] [facility] CBC PLATELETS [#/VOLUME] IN BLOOD BY AUTOMATED COUNT 201 10*3/uL 140 - 360 08/15 Specimen Type: BLOOD No comment entered. Ordering Provider: MAMIE LONDON Report Released Date/Time: Aug 02, 2024 04:27 PM Reporting Lab: [facility] [place] [address] [address] Performing Lab: [facility] [address] [address] [facility] CBC ERYTHROCYT E DISTRIBUTI ON WIDTH [RATIO] BY AUTOMATED COUNT 12.7 12.0 - 16.0 08/15 Specimen Type: BLOOD No comment entered. Ordering Provider: MAMIE LONDON Report Released Date/Time: Aug 02, 2024 04:27 PM Reporting Lab: [facility] [place] [facility] [address] [facility] [address] Performing Lab: [facility] [place] [facility] [address] [facility] [address] [facility] CBC MCH [ENTITIC MASS] BY AUTOMATED COUNT 29.6 pg 26.2 - 32.6 08/15 Specimen Type: BLOOD No comment entered. Ordering Provider: MAMIE LONDON Report Released Date/Time: Aug 02, 2024 04:27 PM Reporting Lab: [facility] [address] [facility] [address] Performing Lab: [facility] TRN [facility] [address] [facility]PITALRMOODY HOSPITALN [facility]ITALUSE [facility] BASIC METABOLI C PANEL (non-fas ting) UREA NITROGEN [MASS/VOLU ME] IN SERUM OR PLASMA 16 mg/dL 7 - 25 08/15 Specimen Type: SERUM No comment entered. Ordering Provider: MAMIE LONDON Report Released Date/Time: Aug 02, 2024 04:27 PM Reporting Lab: [facility]OSPITALRDEKALB REG[facility]ENTERTRN [facility]USE[address] [address] Performing Lab: [facility]ITALRL TRN [facility] [address] [facility] HOSPITALRMOODY HOSPITALN [facility]ITALUSE [facility] BASIC METABOLI C PANEL (non-fas ting) GLUCOSE [MASS/VOLU ME] IN SERUM OR PLASMA 85 mg/dL 65 - 100 08/15 Specimen Type: SERUM No comment entered. Ordering Provider: MAMIE LONDON Report Released Date/Time: Aug 02, 2024 04:27 PM Reporting Lab: [facility] [place] [address] [address] Performing Lab: [facility]ITALRL W[facility]N [facility] [address] [facility] HOSPITALRL TRN [facility]SE [facility] BASIC METABOLI C PANEL (non-fas ting) SODIUM [MOLES/VOL UME] IN SERUM OR PLASMA 141 mmol/L 135 - 145 08/15 Specimen Type: SERUM No comment entered. Ordering Provider: MAMIE LONDON Report Released Date/Time: Aug 02, 2024 04:27 PM Reporting Lab: [facility]ITAL[facility]ETS [address] [address] Performing Lab: [facility]ITAL[facility]ETS [address] [address] [facility]ITAL[facility] [facility] BASIC METABOLI C PANEL (non-fas ting) POTASSIUM [MOLES/VOL UME] IN SERUM OR PLASMA 4.0 mmol/L 3.5 - 5.0 08/15 Specimen Type: SERUM No comment entered. Ordering Provider: MAMIE LONDON Report Released Date/Time: Aug 02, 2024 04:27 PM Reporting Lab: [facility] [address] Performing Lab: [facility]ITALRL W[facility]N [facility]ITALUSETS [address] [address] [facility]ITALRL WSTRN [facility]ITAL[facility] BASIC METABOLI C PANEL (non-fas ting) CHLORIDE [MOLES/VOL UME] IN SERUM OR PLASMA 107 mmol/L 100 - 110 08/15 Specimen Type: SERUM No comment entered. Ordering Provider: MAMIE LONDON Report Released Date/Time: Aug 02, 2024 04:27 PM Reporting Lab: [facility]ITALRL W[facility]ITALUSETS [address] [address] Performing Lab: [facility]ITAL[facility]ETS [address] [address] [facility]ITALRL WSTRN [facility]ITALUSE [facility] BASIC METABOLI C PANEL (non-fas ting) CARBON DIOXIDE, TOTAL [MOLES/VOL UME] IN SERUM OR PLASMA 25 meq/L 20 - 30 08/15 Specimen Type: SERUM No comment entered. Ordering Provider: MAMIE LONDON Report Released Date/Time: Aug 02, 2024 04:27 PM Reporting Lab: [facility]ITALRL W[facility]N [facility]ITALUSETS [address] [address] Performing Lab: [place] [address] [address] [facility] BASIC METABOLI C PANEL (non-fas ting) CREATININE [MASS/VOLU ME] IN SERUM OR PLASMA 0.93 mg/dL 0.50 - 1.40 08/15 Specimen Type: SERUM No comment entered. Ordering Provider: MAMIE LONDON Report Released Date/Time: Aug 02, 2024 04:27 PM Reporting Lab: [address] [address] Performing Lab: [address] [address] [facility] BASIC METABOLI C PANEL (non-fas ting) GLOMERULAR FILTRATION RATE/1.73 SQ M.PREDICTE D [VOLUME RATE/AREA] IN SERUM, PLASMA OR BLOOD BY CREATININE -BASED FORMULA (CKD-EPI 2020) >90mL/mi n 60 08/15 Specimen Type: SERUM No comment entered. Ordering Provider: MAMIE LONDON Report Released Date/Time: Aug 02, 2024 04:27 PM Reporting Lab: [address] [address] Performing Lab: [address] [address] [facility] Molecula r Infectio us Disease Reason for Test? Diagnosi s (09/01/20 2:53 PM) 09/01 N [facility] Molecula r Infectio us Disease SARS-CoV-2 PCR Negative 2 (09/01/20 2:53 PM) 09/01 N Interpretiv e Data: +EUA comment The laboratory is certified under the Clinical Laboratory Improvement Program (CLIP) and [employer] of [employer] Path[employer] s (CAP) as qualified to perform high complexity clinical laboratory testing.The se results were generated using the CDC 2019-Novel Coronavirus (2019-nCoV) Real-time RT-PCR Diagnostic Panel. This assay is intended for the in vitroqualit ative detection of the SARS-CoV-2 (COVID-19) RNA in respiratory specimens from individuals meeting SARS-CoV-2 (COVID-19) clinical and/or epidemiolog ical criteria. Identificat ion of SARS-CoV-2 (COVID-19) is considered final. Negative results do not preclude SARS-CoV-2 (COVID-19) infection and should not be used as the sole basis for treatment or other patient management decisions. The CDC 2019-Novel Coronavirus (2019-nCoV) Real-time RT-PCR Diagnostic Panel + is only for use under the Food and Drug Administrat ion's Emergency Use Authorizati on. [address] [place] [address] Disease Source of Test.LC Gen Force Test ( 0 9:31 AM) 08/[address] [place] [address] Disease HIV-1/2 AG/AB 4G CDD LC NEGATIVE 08/14 Result Comment: Performed At: 1 [facility] [id number] [place] [address] [address] [place] [address] AMINA WATT PHD Ph:[phone] [address] [place] [address] Vital Signs Combined list of inpatient and outpatient Vital Signs from Department of Defense and Veterans Affairs, ranging from 12 months to all on record, depending upon the facility. Vital Sign Value Date Comments Source Blood Pressure Manual Automatic 02/10/2021 18:24:[address] [place] [address] BP Site Right arm 02/10/2021 18:24:[address] [place] [address] Systolic Blood Pressure 131 mm[Hg] 02/11/20 21 18:24:[address] [place] [address] Diastolic Blood Pressure 79 mm[Hg] 021 18:24:[address] [place] [address] Peripheral Pulse Rate 55 bpm 02/10/2021 18:24:[address] [place] [address] Mean Arterial Pressure, Calc 96 mm[Hg] 02/10/2021 18:24:[address] [place] [address] Respiratory Rate 16 br/min 02/10/2021 18:24:[address] [place] [address] Temperature Oral 36.7 Lali 02/10/2021 18:24:00 0208C-[facility] 13 [facility] SYSTOLIC BLOOD PRESSURE 134 08/15/20 24 13:59:03 [facility] DIASTOLIC BLOOD PRESSURE 80 024 13:59:03 [facility] PULSE OXIMETRY 98 08/15/2024 13:59:03 [facility] WEIGHT 171 08/15/2024 13:59:03 [facility] BMI 29 kg/m2 08/15/2024 13:59:03 [facility] PAIN 0 08/15/2024 13:59:03 [facility] HEIGHT 65 08/15/2024 13:59:03 [facility] TEMPERATURE 98.3 08/15/2024 13:59:03 [facility] PULSE 69 08/15/2024 13:59:03 [facility] RESPIRATION 20 08/15/2024 13:59:03 [facility] Encounters Combined list of: 1) Encounters from Department of Veterans Affairs facilities going backup to the last 18 months, not all VA inpatient encounters are included; 2) Encounters from the Department of Defense facilities going backup to 280 months. Location Location Details Encounter Type Encounter Number Reason For Visit Attending Provider ADM Date DC Date Status Disposition Source [facility] Sary mazariegos([facility] Audiology ) OUTPATIENT [id number] NADIR FRAUSTO 02/03 Released w/o Limitations [facility] Johan alston(BETITO D Audiolo gy) [facility] BAS) OUTPATIENT [id number] - ALMAS Bustillos 02/13 Released w/o Limitations [facility] Johan alston(MCR D Second BN BAS) [facility] Sary mazariegos(MCRD Second BN BAS) OUTPATIENT [id number] Sickle cell SOILA SALAZAR 02/18 Released w/o Limitations [facility] Johan alston(MCR D Second BN BAS) [facility] Johanbriana n([facility] Second BN BAS) OUTPATIENT [id number] - ALMAS BUSTILLOS 02/20 Released w/o Limitations [facility] Johan alecia(MCR D Second BN BAS) [facility] Johanbriana n([facility] Second BN BAS) OUTPATIENT [id number] - ZANDERSON HUTCHINSNIMAGGY Elizabeth 03/02 Released w/o Limitations [facility] Johan alecia(MCR D Second BN BAS) [facility] Johanbriana mazariegos([facility] Weapons BAS) OUTPATIENT [id number] COLD SYMTOMS GENEVIEVE CUMMINS 03/19 Sick at Home/Quarter s [facility] Johan alecia(MCR D Weapons BAS) [facility] Johanbriana mazariegos([facility] Weapons BAS) OUTPATIENT [id number] f/u fever GENEVIEVE CUMMINS 03/20 Released with Work/Duty Limitations [facility] Johan alecia(MCR D Weapons BAS) [facility] Johanbriana mazariegos([facility] Weapons BAS) OUTPATIENT [id number] F/U PHARYNG ITIS GENEVIEVE CUMMINS 03/23 Released w/o Limitations [facility] Johan alecia(MCR D Weapons BAS) [facility]) OUTPATIENT [id number] 1 [facility] 11/09 Released w/o Limitations [facility]( [facility] Theater Facility OUTPATIENT [id number] 05/23 Released w/o Limitations Theater Facilit y [facility](He aring Conserv-B 65) OUTPATIENT [id number] annual ENIO CHARLES 12/12 Released w/o Limitations [facility]( Hearing Conserv -B65) [facility]) OUTPATIENT [id number] PAULA ERIC 12/15 Released w/o Limitations [facility]( [facility](Op tometry Hadnot Bldg 15) OUTPATIENT [id number] NITHIN Marlow 12/21 Released w/o Limitations [facility]( Optomet ry Hadnot Bldg 15) [facility](He aring Conserv-B 65) OUTPATIENT [id number] ENIO CHARLES 12/25 Released w/o Limitations [facility]( Hearing Conserv -B65) [facility](HS C Nurse Clinic) TELE CONSULT [id number] Notes Entered by: NICKY ZEPEDA 24 May 2013 1523 ------- ------- ------- ------- -- I)-NAL- Pt. is having testicl e pain NICKY ZEPEDA 05/24 [facility]( [facility] Nurse Clinic) [facility](Ca rdiology Clinic) OUTPATIENT [id number] breif eppisod es of dizzine ss SHIVAM ONEILL 08/27 Released w/o Limitations [facility]( Cardiol ogy Clinic) [facility](Oc cupationa l Medicine Cln) OUTPATIENT [id number],720 [facility] ez/MWSS -274 NAVI BUTTERFIELD 10/31 Released w/o Limitations [facility]( Occupat ional Medicin e Cln) [facility] Team 2) OUTPATIENT [id number] BRITTNI DONOVAN 11/16 Released w/o Limitations [facility]( [facility] Team 2) [facility] Team 2) OUTPATIENT [id number] testicu lar JULIANA Burch 11/19 Released w/o Limitations [facility]( [facility] Team 2) [facility](Op tometry CP Cln) OUTPATIENT [id number] Blurred vision MARKO CABELLO 11/26 Released w/o Limitations [facility]( Optomet ry CP Cln) [facility] Team 2) OUTPATIENT [id number] cold marcusromero GARCIABJORN Sean 06/27 Sick at Home/Quarter s [facility]( [facility] Team 2) [facility] Team 2) OUTPATIENT [id number] ROB Cardenas 10/10 Released w/o Limitations [facility]( [facility] Team 2) [facility] Team 2) OUTPATIENT [id number] willie hines in head and neck ROMEO EMANUEL 10/29 Released w/o Limitations [facility]( [facility] Team 2) [facility](Ch iropracti c Cln) OUTPATIENT [id number] Neck pain JOSÉ KHAN 11/28 Released w/o Limitations [facility]( Chiropr actic Cln) [facility] Team 2) OUTPATIENT [id number] cut on R wrist (tender and swollen ) BARRY HAYDEN 12/03 Released w/o Limitations [facility]( [facility] Team 2) [facility](Ch iropracti c Cln) OUTPATIENT [id number] f/u JOSÉ KHAN 12/06 Released w/o Limitations [facility]( Chiropr actic Cln) [facility](Ch iropracti c Cln) OUTPATIENT [id number] Notes Entered by: MAT JULIAN 19 Dec 2014 1302 ------- ------- ------- ------- -- f/JOSÉ Hale 12/19 Released w/o Limitations [facility]( Chiropr actic Cln) [facility](Ch iropracti c Cln) OUTPATIENT [id number] f/JOSÉ Hale 12/26 Released w/o Limitations [facility]( Chiropr actic Cln) [facility]( iropracti c Cln) OUTPATIENT [id number] f/u JOSÉ KHAN 01/03 Released w/o Limitations [facility]( Chiropr actic Cln) [facility]( iropracti c Cln) OUTPATIENT [id number] f/u JOSÉ KHAN 02/03 Released w/o Limitations [facility]( Chiropr actic Cln) [facility]( iropracti c Cln) OUTPATIENT [id number] Notes Entered by: LOWELL HOGAN 10 Feb 2015 1303 ------- ------- ------- ------- -- sean/JOSÉ Hale 02/10 Released w/o Limitations [facility]( Chiropr actic Cln) [facility] Team 2) OUTPATIENT [id number] bump in groin area DO PATEL Elizabeth 05/07 Released w/o Limitations [facility]( [facility] Team 2) [facility] Team 2) OUTPATIENT [id number] neck pain ROMEO EMANUEL 06/04 Released w/o Limitations [facility]( [facility] Team 2) [facility] Team 1) OUTPATIENT [id number] DASHA DOHERTY 06/18 Released w/o Limitations [facility]( [facility] Team 1) [facility]( iropracti c Cln) OUTPATIENT [id number] Neck pain JOSÉ KHAN 06/18 Released w/o Limitations [facility]( Chiropr actic Cln) [facility] Team 2) OUTPATIENT [id number] ear pain, both ears ROMEO EMANUEL 06/23 Released w/o Limitations [facility]( [facility] Team 2) [facility]( iropracti c Cln) OUTPATIENT [id number] f/u KHANGOLD PITTSBETH Conklin 07/08 Released w/o Limitations [facility]( Chiropr actic Cln) [facility] Team 2) OUTPATIENT [id number] R ankle and knee pain ROMEO EMANUEL JOHAN 09/12 Released w/o Limitations [facility]( [facility] Team 2) [facility]( iropracti c Cln) OUTPATIENT [id number] f/u KHANGOLD PITTSBETH Conklin 09/30 Released w/o Limitations [facility] Team 2) OUTPATIENT [id number] knee and ankle pain ROMEO EMANUEL JOHAN 10/02 Released w/o Limitations [facility]( [facility] Team 2) [facility]( iropracti c Cln) OUTPATIENT [id number] KHANGOLD PITTSBETH Conklin 10/08 Released w/o Limitations [facility]( [facility] actic n) [facility] Team 1) OUTPATIENT [id number] Notes Entered by: LISA MARIN 25 Dec 2015 0933 ------- ------- ------- ------- -- LEADERS HIP VIRIDIANA DOUGEHRTY 12/24 Released w/o Limitations [facility]( [facility] Team 1) [facility] Team 1) OUTPATIENT [id number] JULIANA LR 01/06 Released w/o Limitations [facility]( [facility] Team 1) [facility]( neral Surgery Cln) OUTPATIENT [id number] Flat foot [pes planus] (acquir ed), unspeci fied foot ERNESTINA ARCE 02/18 Released w/o Limitations [facility]( General Surgery Cln) [facility] Team 2) OUTPATIENT [id number] R knee pain VALENTINE HIGHTOWER 02/26 Released w/o Limitations [facility]( [facility] Team 2) [facility](Ph ysical Therapy Cln) OUTPATIENT [id number] Pain in right knee MOOKIE MIRZA 03/22 Released w/o Limitations [facility]( Physica l Therapy Cln) [facility] n(MCRD Perm-Part y) OUTPATIENT [id number] //FL U NATE BERMAN 07/20 Released w/o Limitations [facility] Johan alston(MCR D Perm-Pa rty) [facility] n(MCRD Hearing Conservat ion) OUTPATIENT [id number] ABY GILMAN 09/08 Released w/o Limitations [facility] Johan alston(MCR D Hearing Conserv ation) [facility] n(MCRD Perm-Part y) OUTPATIENT [id number] 3rd bn//nec k pain (f/U ER) ZIGGY SIN 09/29 Released w/o Limitations [facility] Johan alston(MCR D Perm-Pa rty) [facility] n(MCRD Perm-Part y) TELE CONSULT [id number] Notes Entered by: BASIL VILLALTA P 16 Nov 2016 1349 ------- ------- ------- ------- -- ER F/U Cold Sym VIR[place]IA BALLESTEROS P. 11/16 Referred for Appointment [facility] Johan alston(MCR D Perm-Pa rty) [facility] n(Delmar amos [facility] t) OUTPATIENT [id number] Notes Entered by: ENIO REDDY 16 Nov 2016 1543 ------- ------- ------- ------- -- for vivien nt alliance party ENIO REDDY 11/16 Released w/o Limitations [facility] Johan alecia(Stephanie ufort [place] Case Managem ent) [facility] Sary mazariegos(MCRD Perm-Part y) OUTPATIENT [id number] 3RD BN // Er FU cold symptom s PREM TUBBS 11/19 Released w/o Limitations [facility] Johan alston(MCR D Perm-Pa rty) [facility] Sary mazariegos(MCRD Perm-Part y) OUTPATIENT [id number] 3RD//RE LM ALENA JOSEPH 01/11 Released w/o Limitations [facility] Johan alecia(MCR D Perm-Pa rty) [facility] Sary mazariegos(MCRD Perm-Part y) OUTPATIENT [id number] 3rd bn//f/u ortho (r/s 01/31) NIDIA ACEVEDO 02/01 Released w/o Limitations [facility] Johan alston(MCR D Perm-Pa rty) [facility] Sary mazariegos(MCRD Podiatry) OUTPATIENT [id number] IE flat feet, request ing inserts HEIDI HOPKINS 02/02 Released w/o Limitations [facility] Johan alston(MCR D Podiatr y) [facility] Sary mazariegos([facility] Chiroprac tic Clinic) OUTPATIENT [id number] Upper back pain DANIELLE ACOSTA 02/02 Released w/o Limitations [facility] Johan alston([facility] S Chiropr actic Clinic) [facility] Sary mazariegos([facility] Chiroprac tic Clinic) OUTPATIENT [id number] DANIELLE ACOSTA 02/09 Released w/o Limitations [facility] Johan alston([facility] Chiropr actic Clinic) [facility] Sary mazariegos([facility] Chiroprac tic Clinic) OUTPATIENT [id number] DANIELLE ACOSTA 02/16 Released w/o Limitations [facility] Johan alston([facility] Chiropr actic Clinic) [facility] Sary mazariegos(MCRD Physical Therapy) OUTPATIENT [id number] Plantar fascial fibroma tosLESLIE Belle 02/16 Released w/o Limitations [facility] Johan alston(MCR D Physica l Therapy ) [facility] Sary mazariegos(MCRD Perm-Part y) OUTPATIENT [id number] 3RD//PH Mark [place]([facility])MARKO 03/14 Released w/o Limitations [facility] Johan alston([facility] D Perm-Pa rty) [facility] n([facility] Perm-Part y) OUTPATIENT [id number] pp/infl uanna earle MOOKIE BEDOYA S 06/27 Released w/o Limitations [facility] Johan alston(MCR D Perm-Pa rty) [facility] n([facility] Hearing Conservat ion) OUTPATIENT [id number] Notes Entered by: BLAKE GOMEZ 13 Dec 2017 0748 ------- ------- ------- ------- -- Annual Audiogr am BLAKE GOMEZ 12/13 Released w/o Limitations [facility] Johan alston([facility] D Hearing Conserv ation) [facility] n([facility]) OUTPATIENT [id number] DOT/AD [facility]/50 [id number] 12/2652 RAPHAEL LANTIGUA 12/13 Released w/o Limitations [facility] Johan alston([facility] Occupat ionwa Health) [facility] Johan n([facility] Perm-Part y) TELE CONSULT [id number] Notes Entered by: ANGELLA CABELLO 12 Apr 2018 0741 ------- ------- ------- ------- -- Spt//co mpleted online HORACIO Baires 04/12 Referred for Appointment [facility] Johan alston([facility] D Perm-Pa rty) [facility] n([facility] Occupatio [facility] Health) OUTPATIENT [id number] [facility] [id number] AGATA PAGE 04/20 Released w/o Limitations [facility] Johan alston([facility] Occupat ional Health) [facility] [place] n([facility] Perm-Part [facility]) OUTPATIENT [id number] spt//ph BRADLEY Burciaga 04/26 Released w/o Limitations [facility] Johan alston([facility] D Perm-Pa rty) [facility] n(MCRD Perm-Part y) OUTPATIENT [id number] SPT// hip pain NIDIA ACEVEDO P 05/02 Released w/o Limitations [facility] Johan alston(MCR D Perm-Pa rty) [facility] Sary mazariegos(MCRD Perm-Part y) OUTPATIENT [id number] PP - Influen LANRE Jean Baptiste 07/10 Released w/o Limitations [facility] Johan alston(MCR D Perm-Pa rty) [facility] Sary mazariegos([facility]) OUTPATIENT [id number] 9 Notes Entered by: SA BOB HENRY 19 Sep 2018 0856 ------- ------- ------- ------- -- persist ent cough EVELYN VEGA 09/19 Sick at Home/Quarter s [facility] Johan alston([facility] Care [facility]) [facility] Sary mazariegos(MCRD Perm-Part y) TELE CONSULT [id number] 9 Notes Entered by: BASIL VILLALTA P 20 Sep 2018 1353 ------- ------- ------- ------- -- [facility] [place] F/U [place] Villegas P. 09/20 Other Not Elsewhere Classified [facility] Johan alston(MCR D Perm-Pa rty) [facility] Sary mazariegos(MCRD Perm-Part y) OUTPATIENT [id number] 4 3rd// f/u [facility] [place] NIDIA ACEVEDO P 09/21 Released with Work/Duty Limitations [facility] Johan alston(MCR D Perm-Pa rty) [facility] Sary mazariegos(MCRD Perm-Part y) OUTPATIENT [id number] 8 3rd// Relm NIDIA ACEVEDO P 11/23 Released w/o Limitations [facility] Johan alston(MCR D Perm-Pa rty) [facility](22A [facility] Conserv[facility] ion) OUTPATIENT [id number] 4 ANNUAL AUDIO ELLA IBARRA 04/10 Released w/o Limitations [facility](2 2Area Hearing Conserv ation) [facility](22 Area [facility] Blue Team [place]) OUTPATIENT [id number] 5 PHA GUERITA AKINS 04/11 Released w/o Limitations [facility](2 2 Area [facility] Blue [employer] [place]) Theater Facility OUTPATIENT [id number] 3 Theater Provider 06/05 Released w/o Limitations Theater Facilit y Theater Facility OUTPATIENT [id number] 2 Theater Provider 06/16 Released w/o Limitations Theater Facilit y [facility](41a [facility]) OUTPATIENT [id number] 5 AD [id number] SYED/EMH E (GUNTER) HARRISON ARTEAGA 07/26 Released w/o Limitations [facility](41a [facility]) OUTPATIENT [id number] 3 AD SYED/EMH E (GUNTER) REHAN RAMIREZ 07/26 Released w/o Limitations [facility](22 Area [facility] OUTPATIENT [id number] 2 Cold like marcusx JEFFERY MCINTYRE 10/10 Sick at Home/Quarter s [facility](2 2 Area [facility] [employer]) [facility](22 Area [facility] Blue Team [facility] OUTPATIENT [id number] 9 Notes Entered by: Elizabeth SHULTZ 12 Oct 2019 1233 ------- ------- ------- ------- -- chest pain GUERITA AKINS 10/12 Released w/o Limitations [facility](2 2 Area [facility] [employer]) [facility](22 Area [facility] [employer]) OUTPATIENT [id number] 2 Re-enli stment screeni EMMY Galeas 11/19 Released w/o Limitations [facility](2 2 Area [facility] [employer]) [facility](13A BC 14Area [facility] Green Team) OUTPATIENT [id number] Notes Entered by: Rogelio DIXON 14 Jan 2020 0926 ------- ------- ------- ------- -- CLR17/R KNEE PAIN ALMAS SMITH 01/13 Released with Work/Duty Limitations [facility](1 3A 14[facility] Green Team) [facility](13A [facility] Green Team) TELE CONSULT [id number] Notes Entered by: JOE SALDIVAR 07 Mar 2020 1306 ------- ------- ------- ------- -- CLR 17/ RELM YOKASTA RACHEL 03/07 Released to Self Care [facility](1 3ABC 14[facility] Green Team) [facility](13A [facility] Green [employer]) TELE CONSULT [id number] Notes Entered by: MERLE LORENZO I 31 Mar 2020 0820 ------- ------- ------- ------- -- CLR17/ Lab Results ERLIN TRISTAN 03/31 [facility](1 3A 14[facility] Green [facility]) [facility](13A [facility] Green Team) TELE CONSULT [id number] 7 Notes Entered by: CRISTO CARRANZA 03 Apr 2020 0959 ------- ------- ------- ------- -- CLR17/ Lab results ADARSH ORLANDO 04/03 [facility](1 3A 14[facility] Green [facility]) [facility]([address] Green Team) TELE CONSULT [id number] Notes Entered by: SAROJ TAYLOR 07 Apr 2020 0919 ------- ------- ------- ------- -- CLR17/ call back ADARSH ORLANDO 04/07 [facility](1 3A 14[facility] Green [facility]) [facility](13A [facility] Green Team) OUTPATIENT [id number] 2 CLR 17/ GROIN PAIN/ HIP FLEXOR PAIN EBENEZER GARCIA 05/14 Released with Work/Duty Limitations [facility](1 3ABC 14Area [employer] Team) [facility] Outpatient Encounter [id number] 07/27 [facility] Outpatient Encounter [id number] 07/27 [facility] HC PRO PHONE CALL 11-20 MIN [id number] 1. Diagnos is: ICD-10- CM K21.9 Gastro- esophag eal reflux disease without esophag itis CONNOR FLORES 08/15 [facility] OFFICE O/P NEW MOD 45 MIN [id number] 1. Diagnos is: ICD-10- CM K21.9 Gastro- esophag eal reflux disease without esophag itis Lev LONDON 08/15 [facility] Outpatient Encounter [id number] 08/17 [facility] Outpatient Encounter [id number] 08/28 [facility] CASE MANAGEMENT [id number] 1. 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 Procedure Procedure Type Code Date Perfomer Comments Sourc e No data available for this section [facility] SERVICE(S) PROVIDED BETWEEN 10:00 PM AND 8:00 AM AT 24-HOUR FACILITY, IN ADDITION TO BASIC SERVICE 2019 DoD PSYCHOTHERAPY FOR CRISIS; FIRST 60 MINUTES 2019 DoD BRIEF EMOTIONAL/BEHAVIOR AL ASSESSMENT (EG, DEPRESSION INVENTORY, ATTENTION-DEFICIT/ HYPERACTIVITY DISORDER [ADHD] SCALE), WITH SCORING AND DOCUMENTATION, PER STANDARDIZED INSTRUMENT 2019 DoD BRIEF EMOTIONAL/BEHAVIOR AL ASSESSMENT (EG, DEPRESSION INVENTORY, ATTENTION-DEFICIT/ HYPERACTIVITY DISORDER [ADHD] SCALE), WITH SCORING AND DOCUMENTATION, PER STANDARDIZED INSTRUMENT 2018 DoD PURE TONE AUDIOMETRY (THRESHOLD), AUTOMATED; AIR ONLY 2018 DoD TELE ASSESS & MGT SRV PROV QUAL NONPHYS HLTH CARE PRO TO EST PAT,PARENT,GUARD NOT ORIG REL ASSESS & MGT SRV PROV W/IN PREV 7 DAYS NOR LEAD ASSESS & MGT SRV/PX W/IN NXT 24 HR/SOON APT;5-10 MIN MED DIS 2017 DoD INFLUENZA VIRUS VACCINE, QUADRIVALENT (IIV4), SPLIT VIRUS, PRESERVATIVE FREE, 0.5 ML DOSAGE, FOR INTRAMUSCULAR USE 2017 DoD ADMINISTRATION OF PATIENT-FOCUSED HEALTH RISK ASSESSMENT INSTRUMENT (EG, HEALTH HAZARD APPRAISAL) WITH SCORING AND DOCUMENTATION, PER STANDARDIZED INSTRUMENT 2017 DoD ADMINISTRATION OF PATIENT-FOCUSED HEALTH RISK ASSESSMENT INSTRUMENT (EG, HEALTH HAZARD APPRAISAL) WITH SCORING AND DOCUMENTATION, PER STANDARDIZED INSTRUMENT 2017 DoD VISUAL FIELD EXAMINATION, UNI OR BILATERAL, WITH MEDICAL DIAGNOSTIC EVAL; LIMITED EXAM (EG, TANGENT SCREEN, AUTOPLOT, ARC PERIMETER, OR SINGLE STIMULUS LEVEL AUTO TEST, EG OCTOPUS 3 OR 7 EQUIVALENT) 2017 DoD PURE TONE AUDIOMETRY (THRESHOLD); AIR ONLY 2017 DoD IMMUNIZATION ADMINISTRATION (INCLUDES PERCUTANEOUS, INTRADERMAL, SUBCUTANEOUS, OR INTRAMUSCULAR INJECTIONS); 1 VACCINE (SINGLE OR COMBINATION VACCINE/TOXOID) 2016 DoD PHYSICAL THERAPY EVALUATION:MODERAT E COMPLEXITY,REQ:HIS T PRES PROB,1-2 PERS FACT &/COMORB,IMPACT PLAN OF CARE;CLIN DECIS MAKING OF MOD COMPLEX,TYP,30 MIN ARE SPENT [id number] W THE PATIENT &/FAMILY 2016 DoD CHIROPRACTIC MANIPULATIVE TREATMENT (CMT); SPINAL, 3-4 REGIONS 2016 DoD CHIROPRACTIC MANIPULATIVE TREATMENT (CMT); SPINAL, 3-4 REGIONS 2016 DoD CHIROPRACTIC MANIPULATIVE TREATMENT (CMT); SPINAL, 3-4 REGIONS 2016 [facility] COORDINATED CARE FEE, MAINTENANCE RATE 2016 DoD TELE ASSESS & MGT SRV PROV QUAL NONPHYS HLTH CARE PRO TO EST 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,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,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 NOT ORIG REL ASSESS & MGT SRV PROV W/IN PREV 7 DAYS NOR LEAD ASSESS & MGT SRV/PX W/IN NXT 24 HR/SOON APT;5-10 MIN MED DIS 2016 DoD PURE TONE AUDIOMETRY (THRESHOLD); AIR ONLY 2015 DoD IMMUNIZATION ADMINISTRATION (INCLUDES PERCUTANEOUS, INTRADERMAL, SUBCUTANEOUS, OR INTRAMUSCULAR INJECTIONS); 1 VACCINE (SINGLE OR COMBINATION VACCINE/TOXOID) 2015 DoD IMMUNIZATION ADMINISTRATION (INCLUDES PERCUTANEOUS, INTRADERMAL, SUBCUTANEOUS, OR INTRAMUSCULAR INJECTIONS); EACH ADDITIONAL VACCINE (SINGLE OR COMBINATION VACCINE/TOXOID) 2009 DoD SKIN TEST; TUBERCULOSIS, INTRADERMAL 2009 DoD AUDIOMETRIC TESTING OF GROUPS 2009 DoD THERAPEUTIC PROCEDURE, 1 OR MORE AREAS, EACH 15 MINUTES; THERAPEUTIC EXERCISES TO DEVELOP STRENGTH AND ENDURANCE, RANGE OF MOTION AND FLEXIBILITY 2015 DoD FOOT INSERT, REMOVABLE, MOLDED TO PATIENT MODEL, LONGITUDINAL ARCH SUPPORT, EACH 2015 DoD UNLISTED MODALITY (SPECIFY TYPE AND TIME IF CONSTANT ATTENDANCE) 2015 DoD UNLISTED MODALITY (SPECIFY TYPE AND TIME IF CONSTANT ATTENDANCE) 2015 DoD UNLISTED MODALITY (SPECIFY TYPE AND TIME IF CONSTANT ATTENDANCE) 2014 DoD UNLISTED MODALITY (SPECIFY TYPE AND TIME IF CONSTANT ATTENDANCE) 2014 DoD UNLISTED MODALITY (SPECIFY TYPE AND TIME IF CONSTANT ATTENDANCE) 2014 DoD CHIROPRACTIC MANIPULATIVE TREATMENT (CMT); SPINAL, 1-2 REGIONS 2014 DoD UNLISTED MODALITY (SPECIFY TYPE AND TIME IF CONSTANT ATTENDANCE) 2014 DoD UNLISTED MODALITY (SPECIFY TYPE AND TIME IF CONSTANT ATTENDANCE) 2014 DoD UNLISTED MODALITY (SPECIFY TYPE AND TIME IF CONSTANT ATTENDANCE) 2014 [facility] UNLISTED MODALITY (SPECIFY TYPE AND TIME IF CONSTANT ATTENDANCE) 2014 [facility] EDUCATIONAL SUPPLIES, SUCH BOOKS, TAPES, AND PAMPHLETS, FOR THE PATIENT'S EDUCATION AT COST TO PHYSICIAN OR OTHER QUALIFIED HEALTH EXECUTIVE DIRECTOR 2014 [facility] FITTING OF SPECTACLES, EXCEPT FOR APHAKIA; MONOFOCAL 2013 [facility] TRANSTHORACIC ECHOCARDIOGRAPHY FOR CONGENITAL CARDIAC ANOMALIES; COMPLETE 2012 [facility] PATIENT EDUCATION, NOT OTHERWISE CLASSIFIED, NON-PHYSICIAN PROVIDER, GROUP, PER SESSION 2012 [facility] OPHTHALMOLOGICAL SERVICES: MEDICAL EXAMINATION AND EVALUATION WITH INITIATION OF DIAGNOSTIC AND TREATMENT PROGRAM; INTERMEDIATE, NEW PATIENT 2012 [facility] PURE TONE AUDIOMETRY (THRESHOLD); AIR ONLY 2011 [facility] Non-Physician Phone Call To Patient/Provider Brief (5-10min) Non-Physician Phone Call To Patient/Provider Brief (5-10min) [id number] 2017 [place] BALLESTEROS [facility] Immunization Administration One Vaccine Immunization Administration One Vaccine 00511 2017 JERARDO LINDER [facility] Visual Parker Test Limited Examination Visual Parker Test Limited Examination 93729 2017 RAPHAEL LANTIGUA [facility] Screening Test Of Visual Acuity, Quantitative, Bilateral Screening Test Of Visual Acuity, Quantitative, Bilateral 75044 2017 RAPHAEL LANTIGUA [facility] Threshold Audiogram (Pure Tone) Threshold Audiogram (Pure Tone) 40319 2017 BLAKE GOMEZ [facility] Immunization Administration One Vaccine Immunization Administration One Vaccine 12351 2016 JAZMIN HANSON [facility] Chiropractic Manip Treatmt (CMT) Spinal Three To Four Region Chiropractic Manip Treatmt (CMT) Spinal Three To Four Region 88101 2016 DANIELLE ACOSTA [facility] Chiropractic Manip Treatmt (CMT) Spinal Three To Four Region Chiropractic Manip Treatmt (CMT) Spinal Three To Four Region 45020 2016 DANIELLE ACOSTA [facility] Chiropractic Manip Treatmt (CMT) Spinal Three To Four Region Chiropractic Manip Treatmt (CMT) Spinal Three To Four Region 14158 2016 DANIELLE ACOSTA [facility] Non-Physician Phone Call To Patient/Provider Brief (5-10min) Non-Physician Phone Call To Patient/Provider Brief (5-10min) 13274 2016 [place]IRGIN[place] BALLESTEROS [facility] Coordinated care fee, maintenance rate 2016 ENIO REDDY [facility] Case Management, each 15 minutes 2016 ENIO REDDY [facility] Threshold Audiogram (Pure Tone) Threshold Audiogram (Pure Tone) 25692 2015 ABY GILMAN [facility] Immunization Administration One Vaccine Immunization Administration One Vaccine 63435 2015 NATASHA IBARRA [facility] Physical Therapy: ___ Se ion Segments, 15 Minutes Each Physical Therapy: ___ Session Segments, 15 Minutes Each 35425 2015 MOOKIE MIRZA Physical Medicine Physical Therapy Evaluation Physical Medicine Physical Therapy Evaluation 94341 2015 MOOKIE MIRZA Foot insert, removable, molded to patient model, longitudinal arch support, each 2015 ERNESTINA ARCE [facility] Modalities - Unlisted Modality Modalities - Unlisted Modality 47140 2015 JOSÉ KHAN Modalities Traction Manual (Each Region 15 Minutes) Modalities Traction Manual (Each Region 15 Minutes) 20483 2015 JOSÉ KHAN [facility] Modalities Traction Modalities Traction 55291 2015 JOSÉ KHAN [facility] Chiropractic Manip Treatmt (CMT) Spinal One To Two Regions Chiropractic Manip Treatmt (CMT) Spinal One To Two Regions 11438 2015 JOSÉ KHAN PATIENT RECEIVED CMT, MECHANICAL AND MANUAL TRACTION, ATTENDED PERCUSSION/8 MIN W/RELIEF [facility] Modalities - Unlisted Modality Modalities - Unlisted Modality 31614 2015 JOSÉ KHAN Modalities Traction Manual (Each Region 15 Minutes) Modalities Traction Manual (Each Region 15 Minutes) 62849 2015 JOSÉ KHAN [facility] Modalities Traction Modalities Traction 78333 2015 JOSÉ KHAN [facility] Chiropractic Manip Treatmt (CMT) Spinal One To Two Regions Chiropractic Manip Treatmt (CMT) Spinal One To Two Regions 82187 2015 JOSÉ KHAN PATIENT RECEIVED CMT, MECHANICAL AND MANUAL TRACTION, ATTENDED PERCUSSION/8 MIN W/RELIEF [facility] Modalities - Unlisted Modality Modalities - Unlisted Modality 13702 2014 JOSÉ KHAN [facility] Modalities Traction Manual (Each Region 15 Minutes) Modalities Traction Manual (Each Region 15 Minutes) 20635 2014 JOSÉ KHAN [facility] Modalities Traction Modalities Traction 75157 2014 JOSÉ KHAN [facility] Chiropractic Manip Treatmt (CMT) Spinal One To Two Regions Chiropractic Manip Treatmt (CMT) Spinal One To Two Regions 67439 2014 JOSÉ KHAN PATIENT RECEIVED CMT, MECHANICAL AND MANUAL TRACTION, ATTENDED PERCUSSION/8 MIN W/RELIEF [facility] Modalities - Unlisted Modality Modalities - Unlisted Modality 21315 2014 JOSÉ KHAN Modalities Traction Manual (Each Region 15 Minutes) Modalities Traction Manual (Each Region 15 Minutes) 31398 2014 JOSÉ KHAN Modalities Traction Modalities Traction 38920 2014 JOSÉ KHAN [facility] Chiropractic Manip Treatmt (CMT) Spinal Three To Four Region Chiropractic Manip Treatmt (CMT) Spinal Three To Four Region 52429 2014 JOSÉ KHAN PATIENT RECEIVED CMT, MECHANICAL AND MANUAL TRACTION, ATTENDED PERCUSSION/8 MIN W/RELIEF [facility] Modalities - Unlisted Modality Modalities - Unlisted Modality 05816 2014 JOSÉ KHAN Modalities Traction Manual (Each Region 15 Minutes) Modalities Traction Manual (Each Region 15 Minutes) 10595 2014 JOSÉ KHAN [facility] Modalities Traction Modalities Traction 12227 2014 JOSÉ KHAN [facility] Chiropractic Manip Treatmt (CMT) Spinal Three To Four Region Chiropractic Manip Treatmt (CMT) Spinal Three To Four Region 68786 2014 JOSÉ KHAN PATIENT RECEIVED CMT, MECHANICAL AND MANUAL TRACTION, ATTENDED PERCUSSION/8 MIN W/RELIEF [facility] Modalities - Unlisted Modality Modalities - Unlisted Modality 94407 2014 JOSÉ KHAN [facility] Modalities Traction Manual (Each Region 15 Minutes) Modalities Traction Manual (Each Region 15 Minutes) 18289 2014 JOSÉ KHAN [facility] Modalities Traction Modalities Traction 98400 2014 JOSÉ KHAN [facility] Chiropractic Manip Treatmt (CMT) Spinal One To Two Regions Chiropractic Manip Treatmt (CMT) Spinal One To Two Regions 20427 2014 JOSÉ KHAN PATIENT RECEIVED CMT, MECHANICAL AND MANUAL TRACTION, ATTENDED PERCUSSION/8 MIN W/RELIEF DoD Modalities - Unlisted Modality Modalities - Unlisted Modality 87218 2014 JOSÉ KHAN Modalities Traction Manual (Each Region 15 Minutes) Modalities Traction Manual (Each Region 15 Minutes) 36356 2014 JOSÉ KHAN [facility] Modalities Traction Modalities Traction 36404 2014 JOSÉ KHAN [facility] Chiropractic Manip Treatmt (CMT) Spinal One To Two Regions Chiropractic Manip Treatmt (CMT) Spinal One To Two Regions 83297 2014 JOSÉ KHAN PATIENT RECEIVED CMT, MECHANICAL AND MANUAL TRACTION, ATTENDED PERCUSSION/8 MIN W/RELIEF DoD Modalities - Unlisted Modality Modalities - Unlisted Modality 98393 2014 JOSÉ KHAN Modalities Traction Manual (Each Region 15 Minutes) Modalities Traction Manual (Each Region 15 Minutes) 60168 2014 JOSÉ KHAN [facility] Modalities Traction Modalities Traction 99933 2014 JOSÉ KHAN [facility] Chiropractic Manip Treatmt (CMT) Spinal One To Two Regions Chiropractic Manip Treatmt (CMT) Spinal One To Two Regions 42427 2014 JOSÉ KHAN PATIENT RECEIVED CMT, MECHANICAL AND MANUAL TRACTION, ATTENDED PERCUSSION/8 MIN W/RELIEF DoD Modalities - Unlisted Modality Modalities - Unlisted Modality 92007 2014 JOSÉ KHAN [facility] Modalities Traction Manual (Each Region 15 Minutes) Modalities Traction Manual (Each Region 15 Minutes) 37718 2014 JOSÉ KHAN [facility] Modalities Traction Modalities Traction 05310 2014 JOSÉ KHAN [facility] Chiropractic Manip Treatmt (CMT) Spinal One To Two Regions Chiropractic Manip Treatmt (CMT) Spinal One To Two Regions 08456 2014 JOSÉ KHAN PATIENT RECEIVED CMT, MECHANICAL AND MANUAL TRACTION, ATTENDED PERCUSSION/8 MIN W/RELIEF DoD Modalities - Unlisted Modality Modalities - Unlisted Modality 91752 2014 JOSÉ KHAN [facility] Modalities Traction Manual (Each Region 15 Minutes) Modalities Traction Manual (Each Region 15 Minutes) 30342 2014 JOSÉ KHAN Modalities Traction Modalities Traction 27240 2014 JOSÉ KHAN Chiropractic Manip Treatmt (CMT) Spinal Three To Four Region Chiropractic Manip Treatmt (CMT) Spinal Three To Four Region 61898 2014 JOSÉ KHAN PATIENT RECEIVED CMT, MECHANICAL AND MANUAL TRACTION, ATTENDED PERCUSSION/8 MIN W/RELIEF DoD Exercises A isted Exercises For ROM Exercises Assisted Exercises For ROM [address]Supervised Services Provision Of Educational Supplies -Supervised Services Provision Of Educational Supplies [address] Services Analysis Of Computerized Data Special Services Analysis Of Computerized Data 17282 2014 JOSÉ KHAN Modalities - Unlisted Modality Modalities - Unlisted Modality 19974 2014 JOSÉ KHAN Modalities Traction Manual (Each Region 15 Minutes) Modalities Traction Manual (Each Region 15 Minutes) 19303 2014 JOSÉ KHAN Chiropractic Manip Treatmt (CMT) Spinal One To Two Regions Chiropractic Manip Treatmt (CMT) Spinal One To Two Regions 20660 2014 JOSÉ KHAN PATIENT RECEIVED CMT, MANUAL TRACTION, ATTENDED PERCUSSION/8 MIN DoD Spectacles Services Fitting Monofocals (Not For Aphakia) Spectacles Services Fitting Monofocals (Not For Aphakia) 94562 2013 PATIENCE CABELLO Determination Of Refractive State Determination Of Refractive State 36039 2013 PATIENCE CABELLO Ophthalmological New Patient Start Comprehensive Care Ophthalmological New Patient Start Comprehensive Care 93600 2013 PATIENCE CABELLO Echo For Congenital Defects Complete Transthoracic Echo For Congenital Defects Complete Transthoracic 84807 2012 ELIZABETH RODNEY Patient education, not otherwise cla ified, non-physician provider, group, per se ion 2012 ENIO CHARLES Audiogram (Screening) Audiogram (Screening) 06802 2012 ENIO CHARLES Ophthalmological New Patient Start Intermediate Level Care Ophthalmological New Patient Start Intermediate Level Care [address]Supervised Group Educational Services 2011 ENIO CHARLES [facility] Threshold Audiogram (Pure Tone) Threshold Audiogram (Pure Tone) 96518 2011 ENIO CHARLES [facility] Audiometry Group Testing Audiometry Group Testing 72227 2009 NORM LEDEZMA I [facility] Patient education, not otherwise cla ified, non-physician provider, group, per se ion ELLA IBARRA Threshold Audiogram (Pure Tone) Automated Threshold Audiogram (Pure Tone) Automated 0208T ELLA IBARRA Social History Combined list of available smoking, tobacco, and other social history from Department of Defense and Veterans Affairs facilities. Social History Type Response Date Comment Sourc e Tobacco smoking status NHIS VA-TOBACCO NEVER USED CIGARETTES 08/15/2024 [place] [facility] History of tobacco use VA-TOBACCO NEVER USED OTHER TYPE 08/15/2024 [facility] Smoking Status Never (less than 100 in lifetime) 02/10/2021 Unknown Organization Sex Representation Male (finding) 07/09/2020 Un known Organization Sexual Orientation [facility] Pharmacy Gender identity [facility] This section is an empty social history section. [facility] Assessment and Plan Combined list of future care activities from Department of Defense and Veterans Affairs facilities (e.g., assessment and plan notes, appointments, orders, and referrals). Additional future care activities may be listed in the Plan of Care section. 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 Extracted from:Title: Termination Audiogram Author: ELLA IBARRA Date: 11/27/20 1.?EXAM, FORMAL OCCUPATIONAL HEALTH PROGRAM INCLUDING HEARING CONSERVATION PROGRAM, DUE TO TERMINATION OF OCCUPATIONAL WORKPLACE EXPOSURE 2.?Ear nose and throat disease treatment started 3.?Health education given Assessment: Patient?does not have an STS?in today's?audiogram.?No further testing required. Plan:? Termination Audiogram Complete. 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 01/15/2025 02014 [facility] [place] [address] 13 [facility] Assessment and Plan Extracted from:Title : Office Clinic Note- separation physical Author: ADARSH ORLANDO DO Date: 02/10/21 1.?EXAM, OCCUPATIONAL, SKILLED NURSING OR SEPARATION FROM [place], LONG ?30 yo here for separation physical Fit to separate paperwork filled out and returned on day of encounter ? Extracted from:Title: Termination Audiogram Author: ELLA IBARRA Date: 11/27/20 1.?EXAM, FORMAL OCCUPATIONAL HEALTH PROGRAM INCLUDING HEARING CONSERVATION PROGRAM, DUE TO TERMINATION OF OCCUPATIONAL WORKPLACE EXPOSURE 2.?Ear nose and throat disease treatment started 3.?Health education given Assessment: Patient?does not have an STS?in today's?audiogram.?No further testing required. Plan:? Termination Audiogram Complete. 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 01/15/[address] [place] [address] 22 [facility] Medical [facility] [place] Plan of Care List of future care activities from Department of [facility] facilities. Additional future care activities may be listed in the Assessment and Plan section. Date/Time Care Activity Care Activity Detail Facili ty 02/11/2025 AMBULATORY - MEDICINE AMBULATORY - [place]IC[place] [facility] Functional Status Combined list of recent functional and cognitive assessments recorded at [facility] (VA).VA Functional [place] Measurement (FIM) Scale: 1 = Total Assistance (Subject = 0% +), 2 = Maximal Assistance (Subject = 25% +), 3 = Moderate Assistance (Subject = 50% +), 4 = Minimal Assistance (Subject = 75% +), 5 = Supervision, 6 = Modified [place] (Device), 7 = Complete [place] (Timely, Safely). Assessment Date/Time Source Assessment Type Assessment Skill Assessment Score Assessment Details No data available for this section
--- OUTSIDE RECORDS SUMMARY | 2025-01-15 08:33 | XMS_ITS | Encounter Summary ---
Author Name [facility] [place] [facility] [place] [facility] [place] Address [address] [place] [address] Care Team Providers Care Manager Engagement Name Role Phone KRISTY LONDON Primary Care Provider [facility] Insurance Providers: All historical and current Section Date Range: From patient's date of to the date document was created. This section includes the names of all active insurance providers for the patient. Insurance Provider Type of Coverage Plan Name Start of Policy Coverage End of Policy Coverage Group Number Member ID Insurance Provider's Telephone Number Policy Chavis's Name Patient's Relationship to Policy Chavis [employer] DODA* Jul 30, 2022 DODA [id number] [phone] Ally DELAROSA PATIENT [facility] 2024 [address] SELEC T Sep 26, 2024 [id number] Ally DELAROSA PATIENT Selected Encounter This section includes the information on record at [place] for the Encounter. Date/Time Encounter Type Encounter Description Reason Provider Source Sep 04, 2024 02:00 PM OFFICE O/P NEW LOW 30 MIN PODIATRY ICD-10-CM M72.2 Plantar fascial fibromatosis BRENNA PHIPPS Josy Encounter Template Text not used by VA Assessments - Encounter Diagnoses This section includes the primary and secondary diagnoses documented for the Encounter. Date/Time Primary/Secondary Diagnosis Diagnosis Name Provider Source Sep 04, 2024 02:28 PM PRIMARY Plantar fascial fibromatosis BRENNA PHIPPS Sep 04, 2024 02:28 PM SECONDARY Pain in left foot BRENNA PHIPPS Sep 04, 2024 02:28 PM SECONDARY Pain in right foot BRENNA PHIPPS Plan of Treatment: Future Appointments (+ 6 months) and Future Tests (+/- 45 days) The Plan of Treatment section includes future care activities for the patient from [facility] [place] [facility]. This section includes future appointments and future orders which are active, pending or scheduled. Future Appointments This section includes appointments that were scheduled to occur 6 months from the date of the Encounter, up to a maximum of 20 appointments. The data comes from all [place] treatment facilities. Appointment Date/Time Appointment Type Appointme nt Facility Name Dec 17, 2024 01:35 PM AMBULATORY - MEDICINE [facility] February 11, 2025 01:00 PM AMBULATORY - MEDICINE [facility] Active, Pending, and Scheduled Orders This section includes a listing of several types of active, pending, and scheduled orders, including clinic medications orders, diagnostic test orders, procedure orders and consult orders; where the start date of the order is 45 days before the date of the Encounter or 45 days after the date of theEncounter. The data comes from all [facility] Test Date/Time Test Type Test Details Facility Name Aug 02, 2024 12:00 AM Laboratory - Chemistry Order MICROALBUMIN CREATININE RATIO PANEL URINE (RANDOM) SP [facility] Aug 02, 2024 12:00 AM Laboratory - Chemistry Order URINALYSIS CLEAN CATCH URINE SP [facility] Aug 15, 2024 02:37 PM Consult Order COMMUNITY CARE-EGD Cons Cigarette Machine Filler's Choice [facility] Lab Results: +/- 30 days of the encounter This section includes the Chemistry and Hematology Lab Results on record with [place] for the patient. Radiology Reports and Pathology Reports are provided separately, in subsequent sections. Lab Results This section contains the Chemistry/Hematology Results that were resulted 30 days before or 30 daysafter the date of the Encounter. Date/Time Source Result Type Result - Unit Interpretation Reference Range Specimen Type Comment Aug 15, 2024 02:36 PM [facility] LIPID PANEL, NON FASTING SERUM Specimen Type: SERUM No comment entered. Ordering Provider: KRISTY LONDON Report Released Date/Time: Aug 02, 2024 04:27 PM Reporting Lab: [facility] [address] [facility] [address] Performing Lab: [facility] [address] [facility] [address] CHOLESTEROL 149 mg/dL TRIGLYCERIDE 91 mg/dL 0-150 LDL calculated 100 mg/dL 0-129 CHOL/HDL 4.8 HDL CHOLESTEROL 31 mg/dL L 40-60 Aug 15, 2024 02:36 PM [facility] LIVER FUNCTION SERUM Specimen Type: SERUM No comment entered. Ordering Provider: KRISTY LONDON Report Released Date/Time: Aug 02, 2024 04:27 PM Reporting Lab: [facility] [address] [facility] [address] Performing Lab: [address] [address] PROTEIN,TOTAL 7.8 g/dL 6.0-8.3 ALBUMIN 4.0 g/dL 3.5-5.0 ALKALINE PHOSPHATASE 66 U/L 40-150 AST 36 U/L H 5-34 ALT 66 U/L H BILIRUBIN, TOTAL 2.4 mg/dL H 0.2-1.2 BILIRUBIN, DIRECT 0.6 mg/dL H 0-0.5 Aug 15, 2024 02:36 PM [facility] HEMOGLOBIN A1C PANEL BLOOD Specimen Type: BLO OD Comment: Values obtained from A1C measurements can vary. For atypical A1C assays, a reported value of 7.0 could actually be between 6.72 and 7.28 if measured by a reference method. A reported value of 9.0 could actually be between 8.73 and 9.27. Ref: http://www.ngsp.org/CAPdata.asp Ordering Provider: KRISTY LONDON Report Released Date/Time: Aug 02, 2024 04:27 PM Reporting Lab: [address] [address] Performing Lab: [address] [address] HEMOGLOBIN A1C 4.7 4.0-5.6 Aug 15, 2024 02:36 PM [facility] CBC BLOOD Specimen Type: BLOOD No comment entered. Ordering Provider: KRISTY LONDON Report Released Date/Time: Aug 02, 2024 04:27 PM Reporting Lab: [address] [address] Performing Lab: [address] [address] WBC 4.60 10*3/uL 4.50-11.00 RBC 4.42 10*6/uL 4.23-5.66 HGB 13.1 g/dL 12.8-17 HCT 37.2 L 39.2-50.4 MCV 84.2 fL 82-99 MCHC 35.2 g/dL H 30.8-35.1 PLT 201 10*3/uL 140-360 RDW-CV 12.7 12.0-16.0 MCH 29.6 pg 26.2-32.6 Aug 15, 2024 02:36 PM [facility] BASIC METABOLIC PANEL (non-fasting) SERUM Spe cimen Type: SERUM No comment entered. Ordering Provider: KRISTY LONDON Report Released Date/Time: Aug 02, 2024 04:27 PM Reporting Lab: [address] [address] Performing Lab: [address] [address] UREA NITROGEN 16 mg/dL 7-25 GLUCOSE 85 mg/dL 65-100 SODIUM 141 mmol/L 135-145 POTASSIUM 4.0 mmol/L 3.5-5.0 CHLORIDE 107 mmol/L 100-110 CO2 25 meq/L 20-30 CREATININE, Serum 0.93 mg/dL 0.50-1.40 eGFR(CKD-EPI 2020) >90 mL/min >60 Radiology Reports: +/- 30 days of the encounter Radiology Reports For cases when an order for radiology services may have been completed prior to the date of the Encounter, the report list includes the Radiology Reports that were completed up to 30 days before dateof the Encounter. For cases when an order for radiology services may have been completed after the date of the Encounter, the report list also includes the Radiology Reports that were completed up to30 days after date of the Encounter. The data comes from all [place] treatment facilities. Date/Time Radiology Report Provider Source Aug 15, 2024 02:[address] MAXILLOFACIAL W /O CONT: JG DELAROSA [id number] -[id number] M Exm Date: AUG 15, 2024@14:50 Req Phys: KRISTY LONDON Loc: CWM/NO/PACT 7 (Req'g Loc) Img Loc: NHM/CT Service: Unknown [place] [address] (Case [id number] COMPLETE) CT MAXILLOFACIAL W/O CONT (CT Detailed) CPT:71204 Reason for Study: chronic sinus congestion Clinical History: +burn pit exposure Report Status: Verified Date Reported: AUG 15, 2024 Date Verified: AUG 15, 2024 Nickel Plater E-Sig:/ES/ANNA TORRES JR Report: Study: CT scan of the sinuses without contrast. Comparison: None. Technique: Noncontrast 3 mm contiguous coronal images are taken through the paranasal sinuses. Bone windows are provided. Findings: The frontal, ethmoid, sphenoid and maxillary sinuses are patent, clear and normal. The mastoid air cells are normal. The osteomeatal complexes are patent and normal. The nasal septum is mildly deviated to the left with a small to moderate-sized bony nasal septal spur extending laterally and impinging upon the left inferior turbinate. No bony destruction or abnormality is identified. Impression: No evidence of sinusitis. Primary Diagnostic Code: No immediate attention required Primary Interpreting Staff: ANNA TORRES JR, Radiologist ([employer]ater) /ANNA ROSARIO JR [facility] Encounter Notes: All associated encounter notes This section contains the clinical notes associated to the Encounter. Date/Time Encounter Note(s) Provider Source Sep 04, 2024 08:44 AM PODIATRY CONSULT: LOCAL TITLE: CONSULT REPORT/PODIATRY STANDARD TITLE: PODIATRY CONSULT DATE OF NOTE: SEP 04, 2024@08:44 ENTRY DATE: SEP 04, 2024@08:44:54 AUTHOR: ROSS,BRENNA F EXP COSIGNER: URGENCY: STATUS: COMPLETED NAME: JG DELAROSA DATE: SEP 04, 2024 : January PCP: KRISTY LONDON LAST SEEN: INITIAL CONSULT VISIT TODAY HPI: Pt. is a 34 yo alert [facility] MALE who presents for initial podiatric examination with Dr. Phipps for treatment of a presenting complaint of painful FFET -PLANTAR FASCIITIS AND ADVISED WHILE IN THE THAT HE NEEDED ORTHOSES-PER PCP . Patient has FOOT PAIN. Patient has been referred by: WM. SURYA MD Location of symptoms are: LT>RT HEELS Onset of symptoms has been several YEARS due to this being a recurrent condition that has been exacerbating over the past few MONTHS.Duration of symptoms is daily with periods of exacerbation and remission. Description of symptoms is of an aching-SHARP nature & HE INDICATES POST-STATIC DYSKINESIA. Contributing factors are: BIOMECHANICAL IMBALANCE & increased activity. Previous treatment:WAS FITTED FOR CUSTOM ORTHOSES IN [place] BUT LEFT FOR A NEW SERVICE STATION PRIRO TO RECEIPT PMH: Active problems - Computerized Problem List is the source for the followin. GERD - Gastro-Esophageal Reflux Disease ([facility] [id number]) 2. Foot pain 3. Pain of bilateral knee joints 4. Ankle pain 5. Anxiety ([facility] [id number]) 6. Low back pain 7. Elbow pain 8. Trigger finger of right hand 9. Chronic sinusitis 10. Sickle cell trait 11. Constipation 12. Right hip pain 13. Exposure to potentially hazardous substance *NOTE: REVIEWED ABOVE, NOTING NON-CONTRIBUTORY TO THE CC OTHER THAN THE PRESENCE OF FOOT PAIN Family History: Non-contributory Social History: N/A Current medications: Active Outpatient Medications (including Supplies): *NOTE: DENIES ANY RECENT CHANGES IN MEDS UPON QUESTIONING TODAY-SEE RECONCILIATION PERFOMED THIS DATE BELOW TOBACCO USE = NONE Active Outpatient Medications Status ====== 1) PSYLLIUM ORAL PWD TAKE 2 TEASPOONFULS BY MOUTH ONCE DAILY ACTIVE (MIX WITH AT LEAST 8OZ. OF WATER OR OTHER FLUID) Indication: FOR CONSTIPATION Allergies:PENICILLIN Previous Surgery/Hospitalization: N/A TO THE CC HEIGHT:171 lb [77.56 kg] (08/15/2024 13:59) WEIGHT:65 in [165.1 cm] (08/15/2024 13:59) REVIEW OF SYSTEMS: DEFERRED BEING NON-CONTRIBUTORY TO THE CC & I HAVE REVIEWED THE PCP NOTES & PMH WELL. O: DERMATOLOGICAL: Exam reveals skin color & text to be WNL. Temp is diminished warm to cool proximal to distal. There is normal distribution of hair noted. Nails are WNL& NOT IN NEED OF ATTENTION. There are no superficial painful hyperkeratotic lesions noted at this time. There are no rashes, ulcers, indurations or nodules noted. VASCULAR: Exam reveals DP & PT pulses to be +2 equal & symmetrical bilateral. CFT is >3 sec x 10. There are no superficial varices noted and there is no edema noted. MUSCULOSKELETAL: Exam reveals muscle strength and tone to be equal & symmetrical bilaterally & WNL for an individual of this age and present physical-medical condition. There is pain free ROM at all joints distal to and including the ankle. NEUROLOGICAL: Exam reveals S/D, vibratory, light touch & proprioception sensations to be equal & symmetrical bilaterally & WNL for an individual of this age and present physical-medical status. Protective sensation utilizing a [place] lOg monofilament is 10/10 bilateral. BIOMECHANICAL: Exam is deferred at this time due to the presence of pain. THERE IS A LLD WITH THE LEFT APPROX 1/4 LONGER THAN THE RT A: Clinical Impression is painful PLANTAR FASCIITIS BILATERAL P: Treatment consists of STS CASTING FOR CUSTOM ORTHOSES AND DISPENSED POWER STEP INSERTS M 8-8 09/27 AND HE NOTES AN IMMEDIATE IMPROVEMENT UPON INITIAL WEIGHT BEARING. All care rendered without complications & the patient is progressing well after podiatric care this date and will be scheduled for periodic podiatric care in an attempt to prevent future complications due to the underlying medical conditions. Treatment by a non-professional could be extremely hazardous to the patient's wellbeing due to the underlying medical conditions. Return to Clinic: W/C AFTER UTILIZING CUSTOM ORTHOSES FOR 4-6 WEEKS UNLESS HE IS EXPERIENCING ANY ACUTE DISCOMFORT DURIN GTHAT TIME. *DISCUSSED NEW PROTOCOLS AND CALLED [facility] TODAY FOR RESCHEDULING I DISCUSSED THE FINDINGS & PLAN WITH PATIENT (UNCHANGED SINCE PREVIOUS VISIT) & PATIENT AGREES AND UNDERSTANDS PLAN Medication Reconciliation: Outpatient: Has the patient been taking medications as documented in the EMLR? YES: The patient has been taking medications as documented in the EMLR. Essential Medication List for Review used to complete this medication reconciliation. INCLUDED IN THIS LIST: Alphabetical list of active outpatient prescriptions dispensed from this [place] (local) and dispensed from another [place] or [facility] facility (remote) as well as inpatient orders (local, pending and active), local clinic medications, locally documented non-VA medications, and local prescriptions that have or been discontinued in the past 90 days. - All changes in medications, including all non-VA/Herbal/OTC medications were entered into CPRS. - If there were any medications the patient should no longer take, they were discontinued. - The patient/caregiver was instructed to update this list, discard old lists, and take this list to the next appointment, whether with a VA or non-VA provider. /poncho/ BRENNA PHIPPS DPM PAINTER INTERIOR FINISH Signed: 09/04/2024 14:29 BRENNA PHIPPS HARMONY
--- OUTSIDE RECORDS SUMMARY | 2025-01-15 08:33 | XMS_ITS | Encounter Summary ---
Author Name [facility] [place] Organization [facility] [place] Address [address] [place] [address] Care Team Providers Care Director Of Accounts Receivable Name Role Phone KRISTY LONDON Primary Care Provider Ghassan [facility] Insurance Providers: All historical and current Section [...] TRICA RE DODA* Jul 30, 2022 DODA [id number] Ally DELAROSA PATIENT [facility] 2024 RESER VE SELEC T Sep 26, 2024 [id number] Ally DELAROSA PATIENT Selected Encounter This section includes the information on record at [place] for the Encounter. Date/Time Encounter Type Encounter Description Reason Provider Source Aug 29, 2024 02:01 PM CASE MANAGEMENT ADMIN PAT ACTIVTIES (MASNONCT) ICD-10-CM Z71.89 Other specified counseling UZIEL ESCOBAR Josy Encounter Template Text not used by [place] Assessments - Encounter Diagnoses This section includes the primary and secondary diagnoses documented for the Encounter. Date/Time Primary/Secondary Diagnosis Diagnosis Name Provider Source Aug 29, 2024 02:01 PM PRIMARY Other specified counseling UZIEL ESCOBAR [facility] Plan of Treatment: Future Appointments (+ 6 months) and Future Tests (+/- 45 days) The Plan of Treatment section includes future care activities for the [facility] This section includes future appointments and future orders which are active, pending or scheduled. Future Appointments This section includes appointments that were scheduled to occur 6 months from the date of the Encounter, up to a maximum of 20 appointments. The data comes from all [facility]. Appointment Date/Time Appointment Type Appointme nt Facility Name Sep 04, 2024 02:00 PM [facility] Dec 17, 2024 01:35 PM AMBULATORY - MEDICINE [facility] February 11, 2025 01:00 PM AMBULATORY MEDICINE [facility] Active, Pending, and Scheduled Orders This section includes a listing of several types of active, pending, and scheduled orders, including clinic medications orders, diagnostic test orders, procedure orders and consult orders; where the start date of the order is 45 days before the date of the Encounter or 45 days after the date of theEncounter. The data comes from all [facility]. Test Date/Time Test Type Test Details Facility Name Aug 02, 2024 12:00 AM Laboratory - Chemistry Order MICROALBUMIN CREATININE RATIO PANEL URINE (RANDOM) [facility] Aug 02, 2024 12:00 AM Laboratory - Chemistry Order URINALYSIS CLEAN CATCH URINE [facility] Aug 15, 2024 02:37 PM Consult Order COMMUNITY CARE-EGD Cons Director [facility] Lab Results: +/- 30 days of the encounter This section includes the Chemistry and Hematology Lab Results on record with [place] for the patient. Radiology Reports and Pathology Reports are provided separately, in subsequent sections. Lab Results This section contains the Chemistry/Hematology Results that were resulted 30 days before or 30 daysafter the date of the Encounter. Date/Time Source Result Type Result - Unit Interpretation Reference Range Specimen Type Comment Aug 15, 2024 02:36 PM [facility] LIPID PANEL, NON FASTING SERUM Specimen Type: SERUM No comment entered. Ordering Provider: KRISTY LONDON Report Released Date/Time: Aug 02, 2024 04:27 PM Reporting Lab: [facility] [address] [address] Performing Lab: [facility] [address] [address] CHOLESTEROL 149 mg/dL TRIGLYCERIDE 91 mg/dL 0-150 LDL calculated 100 mg/dL 0-129 CHOL/HDL 4.8 HDL CHOLESTEROL 31 mg/dL L 40-60 Aug 15, 2024 02:36 PM [facility] LIVER FUNCTION SERUM Specimen Type: SERUM No comment entered. Ordering Provider: KRISTY LONDON Report Released Date/Time: Aug 02, 2024 04:27 PM Reporting Lab: [facility] [address] [address] Performing Lab: [address] [address] PROTEIN,TOTAL 7.8 g/dL 6.0-8.3 ALBUMIN 4.0 g/dL 3.5-5.0 ALKALINE PHOSPHATASE 66 U/L 40-150 AST 36 U/L H 5-34 ALT 66 U/L H BILIRUBIN, TOTAL 2.4 mg/dL H 0.2-1.2 BILIRUBIN, DIRECT 0.6 mg/dL H 0-0.5 Aug 15, 2024 02:36 PM [facility] HEMOGLOBIN A1C PANEL BLOOD Specimen Type: BLO [...] Aug 02, 2024 04:27 PM Reporting Lab: [facility] [address] [address] Performing Lab: [address] [address] HEMOGLOBIN A1C 4.7 4.0-5.6 Aug 15, 2024 02:36 PM [facility] CBC BLOOD Specimen Type: BLOOD No comment entered. Ordering Provider: KRISTY LONDON Report Released Date/Time: Aug 02, 2024 04:27 PM Reporting Lab: [facility] [address] [facility] [address] Performing Lab: [facility] [address] [address] WBC 4.60 10*3/uL 4.50-11.00 RBC 4.42 10*6/uL 4.23-5.66 HGB 13.1 g/dL 12.8-17 HCT 37.2 L 39.2-50.4 MCV 84.2 fL 82-99 MCHC 35.2 g/dL H 30.8-35.1 PLT 201 10*3/uL 140-360 RDW-CV 12.7 12.0-16.0 MCH 29.6 pg 26.2-32.6 Aug 15, 2024 02:36 PM [facility] BASIC METABOLIC PANEL (non-fasting) SERUM Spe cimen Type: SERUM No comment entered. Ordering Provider: KRISTY LONDON Report Released Date/Time: Aug 02, 2024 04:27 PM Reporting Lab: [facility] [address] [address] Performing Lab: [address] [address] UREA NITROGEN 16 mg/dL 7-25 GLUCOSE 85 mg/dL 65-100 SODIUM 141 mmol/L 135-145 POTASSIUM 4.0 mmol/L 3.5-5.0 CHLORIDE 107 mmol/L 100-110 CO2 25 meq/L 20-30 CREATININE, Serum 0.93 mg/dL 0.50-1.40 eGFR(CKD-EPI 2020) >90 mL/min >60 Social History: Smoking Status (Most current) and Tobacco Use (All prior to encounter date) This section includes the most current, and the historical, smoking and tobacco- related health factors from the [place] facility where the Encounter took place. Current Smoking Status This section includes the most current smoking, or tobacco-related health factor, from the [place] facility where the Encounter took place. Date/Time Current Smoking Status Comment Shahana christopher Aug 15, 2024 02:00 PM [place]-TOBACCO NEVER U SED CIGARETTES [facility] Tobacco Use History This section includes a history of the smoking, or tobacco-related health factors, that were collected on or before the date of the Encounter. The data comes from the [place] facility where the Encounter took place. Date/Time Smoking Status/Tobacco Use Comment F acility Aug 15, 2024 02:00 PM [place]-TOBACCO NEVER U SED OTHER TYPE [facility] Radiology Reports: +/- 30 days of the [...] the Encounter. The data comes from all [place] treatment facilities. Date/Time Radiology Report Provider Source Aug 15, 2024 02:[address] MAXILLOFACIAL W /O CONT: JG DELAROSA [id number] -1990 M Exm Date: AUG 15, 2024@14:50 Req Phys: KRISTY LONDON Loc: CWM/NO/PACT 7 (Req'g Loc) Img Loc: NHM/CT Service: [place] [address] (Case [id number] COMPLETE) CT MAXILLOFACIAL W/O CONT (CT Detailed) CPT:96790 Reason for Study: chronic sinus congestion Clinical History: +burn pit exposure Report Status: Verified Date Reported: AUG 15, 2024 Date Verified: AUG 15, 2024 Sociology Faculty Member E-Sig:/ES/ANNA TORRES JR Report: Study: CT scan [...] Primary Interpreting Staff: ANNA TORRES JR, Radiologist (Sociology Faculty Member) /ANNA ROSARIO JR [place] [facility] Encounter Notes: All associated encounter notes This section contains the clinical notes associated to the Encounter. Date/Time Encounter Note(s) Provider Source Aug 29, 2024 02:01 PM OUTSOLE ROUNDER NOTE: LOCAL TITLE: POST 911 CASE MANAGEMENT SCREENING STANDARD TITLE: OUTSOLE ROUNDER NOTE DATE OF NOTE: AUG 29, 2024@14:01 ENTRY DATE: AUG 29, 2024@14:01:43 AUTHOR: UZIEL ESCOBAR COSIGNER: TYRONE RO URGENCY: STATUS: COMPLETED Post 06/06 Case Management Screen The was contacted by telephone. demographic information has been verified as correct. Preferred Method(s) of Communication: Email Mail Telephone Text Medical and/or Mental Health Crisis: The is NOT currently experiencing a medical and/or mental health crisis. Emergency Room Visits/Hospital Admissions: The [place] has NOT had three or more emergency room visits or hospital admissions in the past six months. Chronic Health Conditions: Other Specify: SEE SC LIST Concerns/Questions/Needs: The [place] has NO barriers to care concerns, questions or needs at this time. The HAS concerns, questions or needs regarding benefits. [place]ENS[place] STATE BENFITS The [place] HAS concerns, questions or needs regarding managing care. WHOLE HEALTH EDUCATION The [place] has NO social concerns, questions or needs at this time. Case Management Screen Outcome: The HAS identified needs as described above. The Veterans identified needs WERE resolved during this encounter. Time spent with patient: 31-45 minutes WHOLE HEALTH WHOLE HEALTH EDUCATION Whole Health Education was provided. Called as part of the TCM screening measure. A comprehensive chart review was conducted prior to this call. 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 is 90% S/C for the following conditions: LIMITED FLEXION OF KNEE (10%-SC) THIGH CONDITION (10%-SC) HIATAL HERNIA (10%-SC) ALLERGIC OR VASOMOTOR RHINITIS (10%-SC) REMOVAL OF RIB(S) (0%-SC) CHRONIC ADJUSTMENT DISORDER (50%-SC) LIMITED FLEXION OF KNEE (10%-SC) VENTRICULAR ARRHYTHMIAS (SUSTAINED) (0%-SC) LIMITED EXTENSION OF THIGH (0%-SC) COMPLETE ATROPHY OF THE TESTIS (0%-SC) LUMBOSACRAL OR CERVICAL STRAIN (10%-SC) LUMBOSACRAL OR CERVICAL STRAIN (10%-SC) LIMITED MOTION OF ANKLE (10%-SC) LIMITED FLEXION OF THIGH (0%-SC) LIMITED MOTION OF ARM (20%-SC) LIMITED MOTION OF ANKLE (10%-SC) FLAT FOOT CONDITION (30%-SC) [place] just started utilizing [facility] and states that he is pleased with his care. [place] denies needing or wanting MH services during our conversation when offered. [place] denied having a medical or mental health crisis during our conversation when asked. We discussed the three different components that Make up the [facility]. We discussed [place] state benefits that he is eligible for, and I explained the function and the dynamics of the [facility] team and educated him on whole health initiative. I also sent him and email with my contact information on it and the welcome home letter with the team's information on it for any future questions or concerns. /poncho/ UZIEL ESCOBAR Transitional Patient Advocate Signed: 08/29/2024 14:22 /poncho/ NEPTALI Jose LICENSED CLINICAL VISUAL COORDINATOR Cosigned: 09/03/2024 08:41 UZIEL ESCOBAR [place] [facility]
--- OUTSIDE RECORDS SUMMARY | 2025-01-15 08:33 | XMS_ITS | Clinical Summary ---
Author Organization [employer] [facility] Address [address] [place] [address] Care Team Providers Care Cook Helper Meat Name Role Phone Unavailable Primary Care Provider Unavailabl e Allergies Active Allergy Reactions Criticality Noted Date Comments Penicillins Unknown 02/08/2024 Medications No known medications Active Problems Problem Noted Date Diagnosed Date Allergic rhinitis, unspecified 02/08/2024 Dizziness 02/08/2024 Health examination of defined subpopulation 01/24 Fever 02/08/2024 Somatic dysfunction of cervical region Pain in testicle 02/08/2024 Pain in right testicle 02/08/2024 Pes planus 02/08/2024 Regular astigmatism 02/08/2024 Segmental and somatic dysfunction 02/08/2024 Sickle cell trait 02/08/2024 Pain in right knee 03/22/2016 Social History Tobacco Use Types Packs/Day Years Used Date Smoking Tobacco: Never Smokeless Tobacco: Never Tobacco Cessation:Counseling Given: Not Answered Sex and Gender Information Value Date Recorded Sex Assigned at Male 02/08/2024 9:29 AM EDT Legal Sex Male 9:28 AM EDT Gender Identity Male 02/08/2024 9:29 AM EDT Sexual Orientation Straight 02/08/2024 9: 30 AM EDT Last Filed Vital Signs Vital Sign Reading Time Taken Comments Blood Pressure 110/72 02/08/2024 1:10 PM EDT Pulse - - Temperature - - Respiratory Rate - - Oxygen Saturation - - Inhaled Oxygen Concentration - - Weight - - Height - - Body Mass Index - - Plan of Treatment Health Maintenance Due Date Last Done Comments Dental Oral Exam 1988 Dental Prophylaxis 1988 Dental X-Ray: Full Mouth 1988 Depression Screening 1988 HIV Screening 1988 Lipid Panel 1988 SDOH Screening 1988 Alcohol/Substance Use Screening 2000 Family Planning (PISQ) 02/17/2003 Hepatitis C Screening 02/17/2006 DTaP/Tdap/Td Vaccines (1 - Tdap) 02/17/2007 Hepatitis B Vaccines (1 of 3 - 19+ 3-dose series) 02/17/2007 COVID-19 Vaccine (1 - 2023-2 5 season) 2024 Influenza Vaccine (#1) 2024 Tobacco Screening 02/07/2025 02/08/2024 Dental X-Ray: Bitewings 02/08/2025 02/08/2024 Zoster Vaccines (1 of 2) 02/17/2038 RSV Patients and Pa tients Aged 60 years or older (1 - 1-dose 75+ series) 02/17/2063 HIB Vaccines Aged Out No longer eligi ble based on patient's age to complete this topic HPV Vaccines Aged Out No longer eligi ble based on patient's age to complete this topic Hepatitis A Vaccines Aged Out No long er eligible based on patient's age to complete this topic IPV Vaccines Aged Out No longer eligi ble based on patient's age to complete this topic Meningococcal Vaccine Aged Out No juanis morena eligible based on patient's age to complete this topic Pneumococcal Vaccine: Pediat rics (0 to 5 Years) and At-Risk Patients (6 to 49) Years) Aged Out No longer elig ible based on patient's age to complete this topic RSV under 20 months Aged Out No longe r eligible based on patient's age to complete this topic Rotavirus Vaccines Aged Out No longer eligible based on patient's age to complete this topic Procedures Procedure Name Priority Date/Time Associated Diagnosis Comments BITEWING - SINGLE RADIOGRAPHIC IMAGE Routine 02/08/2024 1:00 PM EDT Symptomatic irreversible pulpitis from Last 3 Months or Most Recently Relevant to Health Maintenance Insurance DENTAL - [facility] JO Bhandari DENTAL - [facility] JO Bhandari [id number]
--- OUTSIDE RECORDS SUMMARY | 2025-01-15 08:33 | XMS_ITS ---
Author Name [facility] [facility] [place] [facility] [place] Address [address] [place] [address] Care Team Providers Care Sprinkler Irrigation Equipment Mechanic Name Role Phone LUCAS TOSCANO Primary Care Provider Unavailmunir mcmillan Insurance Providers: All historical and current Section [...] TRICA RE DODA* Jul 30, 2022 DODA [id number] Ally DELAROSA PATIENT [facility] 2024 RESER VE SELEC T Sep 26, 2024 [id number] Ally DELAROSA PATIENT Selected Encounter This section includes the information on record at [place] for the Encounter. Date/Time Encounter Type Encounter Description Reason Provider Source Aug 15, 2024 02:00 PM OFFICE O/P NEW MOD 45 MIN PRIMARY CARE/MEDICINE ICD-10-CM K21.9 Gastro-esophageal reflux disease without esophagitis DEWAYNE TOSCANO AM Encounter Template Text not used by [facility] Assessments - Encounter Diagnoses This section includes the primary and secondary diagnoses documented for the Encounter. Date/Time Primary/Secondary Diagnosis Diagnosis Name Provider Source Aug 15, 2024 02:55 PM PRIMARY Gastro-esophageal reflux disease without esophagitis SURYADEWAYNE Conklin [facility] [place] [facility] Aug 15, 2024 02:55 PM SECONDARY Anxiety disorder, unspecified TOSCANO,DEWAYNE AM J [facility] [place] [facility] Aug 15, 2024 02:55 PM SECONDARY Chronic sinusitis, unspecified TOSCANO,DEWAYNE AM J [facility] [place] [facility] Aug 15, 2024 02:55 PM SECONDARY Constipation, unspecified TOSCANO,DEWAYNE AM J [facility] [place] [facility] Aug 15, 2024 02:55 PM SECONDARY Contact with and exposure to other hazardous substances DEWAYNE TOSCANO AM Katerin [facility] [place] [facility] Aug 15, 2024 02:55 PM SECONDARY Low back pain, unspecified TOSCANO,DEWAYNE AM J [facility] [place] [facility] Aug 15, 2024 02:55 PM SECONDARY Pain in left knee TOSCANO,DEWAYNE AM [place]in [facility] [place] [facility] Aug 15, 2024 02:55 PM SECONDARY Pain in right hip TOSCANO,DEWAYNE AM J [facility] [place] [facility] Aug 15, 2024 02:55 PM SECONDARY Pain in right knee TOSCANO,DEWAYNE AM [place] [facility] [place] [facility] Aug 15, 2024 02:55 PM SECONDARY Pain in unspecified ankle and joints of unspecified foot TOSCANO,DEWAYNE AM [place]in [facility] [place] [facility] Aug 15, 2024 02:55 PM SECONDARY Pain in unspecified foot TOSCANO,DEWAYNE AM J [facility] [place] [facility] Plan of Treatment: Future Appointments (+ 6 months) and Future Tests (+/- 45 days) The Plan of Treatment section includes future care activities for the patient [facility] This section includes future appointments and future orders which are active, pending or scheduled. Future Appointments This section includes appointments that were scheduled to occur 6 months from the date of the Encounter, up to a maximum of 20 appointments. The data comes from all [place] treatment facilities. Appointment Date/Time Appointment Type Appointme nt Facility Name Sep 04, 2024 02:00 PM AMBULATORY - MEDICINE [facility] Dec 17, 2024 01:35 PM [facility] February 11, 2025 01:00 PM AMBULATORY - MEDICINE [facility] Active, Pending, and Scheduled Orders This section includes a listing of several types of active, pending, and scheduled orders, including clinic medications orders, diagnostic test orders, procedure orders and consult orders; where the start date of the order is 45 days before the date of the Encounter or 45 days after the date of theEncounter. The data comes from all [place] treatment facilities. Test Date/Time Test Type Test Details Facility Name Aug 02, 2024 12:00 AM Laboratory - Chemistry Order MICROALBUMIN CREATININE RATIO PANEL URINE (RANDOM) SP [facility] Aug 02, 2024 12:00 AM Laboratory - Chemistry Order URINALYSIS CLEAN CATCH URINE SP [facility] Aug 15, 2024 02:37 PM Consult Order COMMUNITY [facility]ARE-EGD Cons Wood Scrap Handler's Choice [facility] Lab Results: +/- 30 days of the encounter This section includes the Chemistry and Hematology Lab Results on record with [place] for the patient. Radiology Reports and Pathology Reports are provided separately, in subsequent sections. Lab Results This section contains the Chemistry/Hematology Results that were resulted 30 days before or 30 daysafter the date of the Encounter. Date/Time Source Result Type Result - Unit Interpretation Reference Range Specimen Type Comment Aug 15, 2024 02:36 PM [facility] LIPID PANEL, NON FASTING SERUM Specimen Type: SERUM No comment entered. Ordering Provider: LUCAS TOSCANO Report Released Date/Time: Aug 02, 2024 04:27 PM Reporting Lab: [address] [id number] Performing Lab: [address] [address] CHOLESTEROL 149 mg/dL TRIGLYCERIDE 91 mg/dL 0-150 LDL calculated 100 mg/dL 0-129 CHOL/HDL 4.8 HDL CHOLESTEROL 31 mg/dL L 40-60 Aug 15, 2024 02:36 PM [facility] LIVER FUNCTION SERUM Specimen Type: SERUM No comment entered. Ordering Provider: LUCAS TOSCANO Report Released Date/Time: Aug 02, 2024 04:27 PM Reporting Lab: [facility] [address] [facility] [address] Performing Lab: [address] [address] PROTEIN,TOTAL 7.8 g/dL 6.0-8.3 ALBUMIN 4.0 g/dL 3.5-5.0 ALKALINE PHOSPHATASE 66 U/L 40-150 AST 36 U/L H 5-34 ALT 66 U/L H BILIRUBIN, TOTAL 2.4 mg/dL H 0.2-1.2 BILIRUBIN, DIRECT 0.6 mg/dL H 0-0.5 Aug 15, 2024 02:36 PM [facility] HEMOGLOBIN A1C PANEL BLOOD Specimen Type: BLO OD Comment: Values obtained from A1C measurements can vary. For atypical A1C assays, a reported value of 7.0 could actually be between 6.72 and 7.28 if measured by a reference method. A reported value of 9.0 could actually be between 8.73 and 9.27. Ref: http://www.ngsp.org/CAPdata.asp Ordering Provider: LUCAS TOSCANO Report Released Date/Time: Aug 02, 2024 04:27 PM Reporting Lab: [address] [address] Performing Lab: [address] [address] HEMOGLOBIN A1C 4.7 4.0-5.6 Aug 15, 2024 02:36 PM [facility] CBC BLOOD Specimen Type: BLOOD No comment entered. Ordering Provider: LUCAS TOSCANO Report Released Date/Time: Aug 02, 2024 04:27 PM Reporting Lab: [address] [address] Performing Lab: [address] [address] WBC 4.60 10*3/uL 4.50-11.00 RBC 4.42 10*6/uL 4.23-5.66 HGB 13.1 g/dL 12.8-17 HCT 37.2 L 39.2-50.4 MCV 84.2 fL 82-99 MCHC 35.2 g/dL H 30.8-35.1 PLT 201 10*3/uL 140-360 RDW-CV 12.7 12.0-16.0 MCH 29.6 pg 26.2-32.6 Aug 15, 2024 02:36 PM [facility] BASIC METABOLIC PANEL (non-fasting) SERUM Spe cimen Type: SERUM No comment entered. Ordering Provider: LUCAS TOSCANO Report Released Date/Time: Aug 02, 2024 04:27 PM Reporting Lab: [address] [address] Performing Lab: [address] [address] UREA NITROGEN 16 mg/dL 7-25 GLUCOSE 85 mg/dL 65-100 SODIUM 141 mmol/L 135-145 POTASSIUM 4.0 mmol/L 3.5-5.0 CHLORIDE 107 mmol/L 100-110 CO2 25 meq/L 20-30 CREATININE, Serum 0.93 mg/dL 0.50-1.40 eGFR(CKD-EPI 2020) >90 mL/min >60 Vital Signs: All taken on the encounter date This section contains inpatient and outpatient Vital Signs collected on the date of the Encounter. Date/Time Temperature Pulse Blood Pressure Respiratory Rate SP02 Pain Height Weight Body Mass Index Source Aug 15, 2024 01:59 PM 98.3 69 134/80 20 98 0 65 171 29 [facility] Social History: Smoking Status (Most current) and Tobacco Use (All prior to encounter date) This section includes the most current, and the historical, smoking and tobacco- related health factors from the [place] facility where the Encounter took place. Current Smoking Status This section includes the most current smoking, or tobacco-related health factor, from the [place] facility where the Encounter took place. Date/Time Current Smoking Status Comment Shahana christopher Aug 15, 2024 02:00 PM [place]-TOBACCO NEVER U SED CIGARETTES [facility] Tobacco Use History This section includes a history of the smoking, or tobacco-related health factors, that were collected on or before the date of the Encounter. The data comes from the [place] facility where the Encounter took place. Date/Time Smoking Status/Tobacco Use Comment F acility Aug 15, 2024 02:00 PM [facility]-TOBACCO NEVER U SED OTHER TYPE [facility] Radiology Reports: +/- 30 days of [...] the Encounter. The data comes from all [place] treatment facilities. Date/Time Radiology Report Provider Source Aug 15, 2024 02:[address] MAXILLOFACIAL W /O CONT: JG DELAROSA [id number] -1990 M Exm Date: AUG 15, 2024@14:50 Req Phys: LUCAS TOSCANO Loc: CWM/NO/PACT 7 (Req'g Loc) Img Loc: NHM/CT Service: [place] [address] (Case [id number] COMPLETE) CT MAXILLOFACIAL W/O CONT (CT Detailed) CPT:26175 Reason for Study: chronic sinus congestion Clinical History: +burn pit exposure Report Status: Verified Date Reported: AUG 15, 2024 Date Verified: AUG 15, 2024 Oracle Etl Developer E-Sig:/ES/ANNA TORRES JR Report: Study: CT scan [...] Primary Interpreting Staff: ANNA TORRES JR, Radiologist (Oracle Etl Developer) /ANNA ROSARIO JR [facility] [place] [facility] Encounter Notes: All associated encounter notes This section contains the clinical notes associated to the Encounter. Date/Time Encounter Note(s) Provider Source Aug 15, 2024 02:39 PM PRIMARY CARE NURSE PRACTITIONER OUTPATIENT NOTE: LOCAL TITLE: NURSE PRACTITIONER OUTPATIENT NOTE STANDARD TITLE: PRIMARY CARE NURSE PRACTITIONER OUTPATIENT NOTE DATE OF NOTE: AUG 15, 2024@14:39 ENTRY DATE: AUG 15, 2024@14:39:16 AUTHOR: LUCAS TOSCANO COSIGNER: URGENCY: STATUS: COMPLETED Chief complaint: Patient is a 34 year old [place]. HPI: Pleasant male [place] here to [facility]. He is not following anywhere else. 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 FH: mom diabetes and diverticulosis, dad glaucoma. Siblings fine. PSH: wisdom teeth removal : [facility] 2009, deployed to [place], +burn pit exposure with concern for GERD and chronic sinusitis. Around 2011 while training he sustained a tear right side intercostal muscle. Also while in the , he jammed his right hand resulting in right hand fifth digit trigger finger, on exam noted the digit stiffens with extension to a point where he needs to manually release it. He continues to serve [employer]. Allergies: PENICILLIN The following VA and Non-VA meds were reconciled with patient. The patient was educated on the use of the medications including indication and side effects. Active and Recently Outpatient Medications (excluding Supplies): No Medications Found Review of Systems: Constitutional: (-)for Fevers, chills, weakness, nights sweats On examination: 98.3 F [36.8 C] (08/15/2024 13:59)134/80 (08/15/2024 13:59)69 (08/15/2024 13:59)20 (08/15/2024 13:59)0 (08/15/2024 13:59)BMI: 28.5171 lb [77.56 kg] (08/15/2024 13:59) is alert and oriented X3 Neck: supple without masses, trachea midline, ln not palpable, no thyromegaly Cardiovasc: 2plus carotids without bruits, no JVD Heart Reguler rate and rhythm NL S1S2 no S3 or murmur Respiration: Normal respiratory effort, lungs clear ABD: Benign normal active bowel sounds no HSM no rebound or referred pain EXT: no clubbing, edema, or cyanosis Assessment/plan: Active problems - Computerized Problem List is the source for the followin. GERD - Gastro-Esophageal Reflux Disease - worsening sx, tries to avoid trigger foods, i advised EGD, he is in agreement 2. Foot pain - will place consult to podiatry 3. Pain of bilateral knee joints - no specific injury, lots of related wear and tear, encouraged to stretch, stay active 4. Ankle pain - no specific injury, lots of related wear and tear, encouraged to stretch, stay active 5. Anxiety - [facility], helpful 6. Low back pain - no specific injury, lots of related wear and tear, encouraged to stretch, stay active 7. Elbow pain - no specific injury, lots of related wear and tear, encouraged to stretch, stay active 8. Trigger finger of right hand - monitor 9. Chronic sinusitis - will get CT Scan 10. Constipation - chronic, suggested psyllium, he is in agreement, educated on use 11. Right hip pain -no specific injury, lots of related wear and tear, encouraged to stretch, stay active Health Care Maintenance: base line labs today Review of medial record = 5mins Time spent with Patient including shared decision making = 40 mins Post visit documentation = 5mins Total time = 50 mins Follow up visit in 6 mos. 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 [place]/caregiver believes the was exposed to the following while serving in the Armed Forces: Airborne Hazards and Open Burn Pit: /caregiver was made aware of educational resources that includes information on the Registry Program, presumptive conditions and how to file a claim. Printed information was offered and provided if desired. /caregiver has health or medical concerns related to their concern of environmental exposure. Concern: gerd, sinusitis No questions at this time /caregiver was informed of local points of contact. Contact information for local resources: Benefits/Claim for Disability Compensation Questions:National VBA [place] [facility] Enrollment: [facility] Eligibility direct dialed at [phone] Registry: [facility] Coordinator ext [phone] The following connections were provided to the [place]/caregiver: No connections needed at this time PTSD Screening: PC-PTSD-5 A PTSD screening test (PC-PTSD-5) was negative (score=0). IN THE PAST MONTH, have you ever had any experience that was so frightening, horrible or traumatic. For example: A serious accident or fire a physical or sexual assault or abuse An earthquake or flood A war Seeing someone be killed or seriously injured Having a loved one through homicide or suicide 1. Have you ever experienced this kind of event? YES 2. Had nightmares about the event(s) or thought about the event(s) when you did not want to? NO 3. Tried hard not to think about the event(s) or went out of your way to avoid situations that reminded you of the event(s)? NO 4. Been constantly on guard, watchful, or easily startled? NO 5. Mclean numb or detached from people, activities, or your surroundings? NO 6. Mclean guilty or unable to stop blaming yourself or others for the event(s) or any problems the event(s) may have caused? NO Medication Reconciliation: Patient reports taking no medications. Meds were not administered, prescribed, modified, nor influenced the care given at this encounter. Sexual Orientation: The patient thinks of their sexual orientation as: Straight or Heterosexual /es/ Lucas Toscano DNP, CLASSROOM AIDE-BC, CNL Primary Care Nurse Practitioner Signed: 08/15/2024 14:53 LUCAS [facility]CANO [facility] Aug 15, 2024 02:00 PM PREVENTIVE MEDICINE NURSING NOTE: LOCAL TITLE: CLINICAL REMINDERS/NURSING STANDARD TITLE: PREVENTIVE MEDICINE NURSING NOTE DATE OF NOTE: AUG 15, 2024@14:00 ENTRY DATE: AUG 15, 2024@14:00:44 AUTHOR: LARRY OLIVA EXP COSIGNER: URGENCY: STATUS: COMPLETED Advance Directive Screen MH AD: Patient does not have an Advance Directive completed and is requesting more information. A consult was sent to Social Work Services at this visit so that an appointment can be made with the patient to review the advance directive. The patient received education about Advance Directives and written notification of his/her rights. Suicide Screen: C-SSRS Screening [place]-Suicide Severity Rating Scale (C-SSRS Screener) 1. Over the past month, have you wished you were or wished you could go to sleep and not wake up? No 2. Over the past month, have you had any actual thoughts of killing yourself? No 3. Over the past month, have you been thinking about how you might do this? Response not required due to responses to other questions. 4. Over the past month, have you had these thoughts and had some intention of acting on them? Response not required due to responses to other questions. 5. Over the past month, have you started to work out or worked out the details of how to kill yourself? Response not required due to responses to other questions. 6. If yes, at any time in the past month did you intend to carry out this plan? Response not required due to responses to other questions. 7. In your lifetime, have you ever done anything, started to do anything, or prepared to do anything to end your life (for example, collected pills, obtained a gun, gave away valuables, went to the roof but didn't jump)? No 8. If YES, was this within the past 3 months? Response not required due to responses to other questions. Homelessness/Food Insecurity Screen: In the past 2 months, have you been living in stable housing that you own, rent, or stay in as part of a household? Yes - Living in stable housing. Are you worried or concerned that in the next 2 months you may NOT have stable housing that you own, rent, or stay in as part of a household? No - Not worried about housing near future The [place] reports the following: Within the past 12 months, you worried whether your food would run out before you got money to buy more. Never true Within the past 12 months, the food you bought just didn't last and you didn't have money to get more. Never true Depression Screening: Perform PHQ-2 A PHQ-2 screen was performed. The score was 0 which is a negative screen for depression. Over the past two weeks, how often have you been bothered by the following problems? 1. Little interest or pleasure in doing things Not at all 2. Feeling down, depressed, or hopeless Not at all Preferred Language: What is your, or your caregiver's preferred language for healthcare? Preferred Language: Dominican Tobacco Use Screening: The patient has never smoked cigarettes. The patient has never used other types of tobacco. Alcohol Use Screen (AUDIT-C): Alcohol Screen: SCREEN FOR ALCOHOL (AUDIT-C) An alcohol screening test (AUDIT-C) was negative (score=1). 1. How often did you have a drink containing alcohol in the past year? Consider a drink to be a 12 ounce can or bottle of regular beer, 8 ounces of malt liquor, a 5 ounce glass of table wine, or a 1.5 ounce shot of liquor (like scotch, gin, or vodka). Monthly or less 2. How many drinks containing alcohol did you have on a typical day when you were drinking in the past year? One or two drinks 3. How often did you have six or more drinks on one occasion in the past year? Never /poncho/ Larry Oliva Health Superintendent Drivers CHIEF NURSING EXECUTIVE,PRIMARY CARE Signed: 08/15/2024 14:04 LARRY OLIVA [facility]
--- OUTSIDE RECORDS SUMMARY | 2025-01-15 08:34 | XMS_ITS ---
Author Organization [facility] Address [address] [place] [address] Care Team Providers Care Gastroenterology Nurse Name Role Phone Everton RICHMOND, Lucas Primary Care Provider Jm Maya Jr, Rohit Killian [phone] REASON FOR VISIT gerd Encounters Encounter Location Date Provider Diagnosis [facility] Outpatient [address] [place] [id number] 01/15/2025 Rohit Maya Jr Plan Of Treatment Next Appt Details Provider Name:Rohit brooks Jr, 01/15/2025 09:30:00 AM, [address] [place] [address], [phone], Progress Notes * DELAROSAEVELIO ROSARIOJIAOB:[birth year] (34 yo M)Acc No.[id number]:01/15/2025 EGD/MAC Patient:?[place] JG Provider:?Rohit Maya MD :1990???Age:34 Y???Sex:Male Michael e:01/15/2025 Address:[address] [place] [address] [address] , [place], [id number] Pcp:Lucas Toscano NP Subjective: * Chief Complaints: * ???1. Gerd. * Medical History:? Objective: * Vitals:? Assessment: Plan: * Treatment: * * The named appointment provid er may or may not be the originator of this progress note, and it is not deemed complete until electronically signed by the appointment provider. Sign off status: Pending * Provider:?Rohit Maya MD Date:?0 01/15/2025 Generated for Benjamín harding/Delroy/Bladimir on:?01/15/2025 08:33 AM EDT
--- NOTE | 2025-01-15 09:03 | MHC.SHP ---
Pre-Procedural Eval Section A - 24 Hr Update-Section A only Date of Service: 01/15/25 The patient is an INPATIENT: No Changes since office visit: No Cold of Flu in the past 2 weeks, No New Medical Problems, No Changes in Medication and No Patient answered all questions The patient has been examined within 24 hours of the surgical procedure. The History & Physical has been completed within 30 days and I have reviewed it.: Yes Section B - Complete if H&P > 30 days Chief Complaint: gerd, Allergies: Allergies Allergy/AdvReac Type Severity Reaction Status Date / Time Penicillins Allergy Anaphylaxis Verified 01/15/25 08:23 Plan I have reviewed the history and physical and performed a pertinent physical examination on my patient. No changes have occurred unless specified. Time Spent With Patient Time: Total time managing care of this patient today ____ minutes.
[2025-01-15 09:15] VITALS: BP 113/56; PULSE 60; RESP 17; TEMP 37.2
--- NOTE | 2025-01-15 09:25 | PM.OP ---
Brief Operative Note Date of Service: 01/15/25 Pre-op diagnosis: GERD Post-op diagnosis: same Procedure: EGD Surgeon: Rohit Maya MD Anesthesia: MAC Was an Glucose And Syrup Weigher used for this Procedure?: No Estimated blood loss (mL): 2 Pathology: other Condition: stable Disposition: PACU
[2025-01-15 09:26] VITALS: BP 99/57; PULSE 70; RESP 12; TEMP 36.3; O2SAT 97
[2025-01-15 09:45] VITALS: BP 108/60; PULSE 60; RESP 17; TEMP 36.6; O2SAT 99
--- NOTE | 2025-01-15 10:44 | OP_ITS ---
DATE OF SERVICE: 01/15/2025 SURGEON: Rohit Maya MD INDICATIONS: Gastroesophageal reflux disease. PREOPERATIVE DIAGNOSIS: POSTOPERATIVE DIAGNOSIS: PROCEDURE PERFORMED: Upper endoscopy with biopsy. ESTIMATED BLOOD LOSS: COMPLICATIONS: ANESTHESIA: Monitored anesthesia care. ASSISTANTS: SPECIMENS: DESCRIPTION OF PROCEDURE: History and physical performed. The risks and benefits of the procedure were explained to the patient. Informed consent was obtained. The patient was placed in the left lateral decubitus position. The Olympus videogastroscope was introduced into the esophagus, stomach, and duodenum. Examination was performed. The scope was removed. He tolerated the procedure well and was returned to recovery area in stable condition. FINDINGS: Esophagus: The esophagus was normal. There was an irregular EG junction. There was no esophagitis. Biopsies were obtained from the EG junction. Stomach: Stomach showed no evidence of masses, ulcers, or polyps. Antral biopsies were obtained to evaluate for H pylori. Duodenum: The bulb and 2nd portion were normal. IMPRESSION: Gastroesophageal reflux disease. RECOMMENDATION: Follow up the biopsy results. MD MIKE Ashford/MODL / [id number]
== END 2025-01-15 10:40 | disposition home or self-care (01) ==
PROVIDERS: Visit Provider Internal Medicine Gastroenterology
PROC: 0DJ08ZZ Inspection of Upper Intestinal Tract, Via Natural or Artificial Opening Endoscopic (ICD-10-PCS; CPT 43235; principal; 2025-01-15 09:30)
DX: K21.9 Gastro-esophageal reflux disease without esophagitis (principal); K29.50 Unspecified chronic gastritis without bleeding; B96.81 Helicobacter pylori [H. pylori] as the cause of diseases classified elsewhere; R19.4 Change in bowel habit; D57.3 Sickle-cell trait; F41.9 Anxiety disorder, unspecified; Z79.899 Other long term (current) drug therapy; Z88.0 Allergy status to penicillin
CPT/HCPCS: 43239; 88305; 88313; 88342; J2003; J2704

== ENCOUNTER 2025-08-02 14:42 | Outpatient (REF) | payer OTHER, SELFPAY ==
--- OUTSIDE RECORDS SUMMARY | 2025-08-02 16:11 | XMS_ITS | Clinical Summary ---
Author Organization [employer] [facility] Address [address] [place] [address] Care Team Providers Care Entertainment Musician Name Role Phone Unavailable Primary Care Provider [...] 1988 Lipid Panel 1988 SDOH Screening 1988 Disability Screening 1988 Alcohol/Substance Use Screening 2000 Family Planning (PISQ) 02/17/2003 HPV Vaccines (1 - Male 3-dos e series) 02/17/2003 Hepatitis C Screening 02/17/2006 DTaP/Tdap/Td Vaccines (1 - Tdap) 02/17/2007 Hepatitis B Vaccines (1 of 3 - 19+ 3-dose series) 02/17/2007 Tobacco Screening 02/07/2025 02/08/2024 Dental X-Ray: Bitewings 02/08/2025 02/08/2024 COVID-19 Vaccine (1 - 2023-2 5 season) 2025 Influenza Vaccine (#1) 2025 Zoster Vaccines (1 of 2) 02/17/2038 RSV [...] patient's age to complete this topic Meningococcal B Vaccine Aged Out No l onger eligible based on patient's age to complete this topic Meningococcal Vaccine Aged Out No juanis morena eligible based on patient's age to complete this topic Pneumococcal Vaccine: Pediat rics (0 to 5 Years) and At-Risk Patients (6 to 49) Years Aged Out No longer eligi ble based [...] Relevant to Health Maintenance Insurance DENTAL - [facility] [place] JO [id number] DENTAL - [facility] [place] JO Bhandari [id number]
== END 2025-08-02 14:43 | disposition home or self-care (01) ==
LOC: HO.LNP 14:42
PROVIDERS: Visit Provider Internal Medicine Gastroenterology
DX: Z11.0 Encounter for screening for intestinal infectious diseases (principal); B96.81 Helicobacter pylori [H. pylori] as the cause of diseases classified elsewhere
CPT/HCPCS: 87338